=== PATIENT | female | born 1935 | race Caucasian/White ===

== ENCOUNTER → 2017-02-12 | Outpatient (CLI) | payer BC ==
[~2017-02-12] MED LIST: AMLO-110 PO; CALC600T9 PO; LEVOXYL PO; OMEG5CAP PO; TRAM-10 PO; TRAV0.00 OPB
--- NOTE | 2017-02-12 13:33 | MAMMOGRAPHY REPORT ---
BILATERAL DIGITAL SCREENING MAMMOGRAM WITH CAD: 02/12/2017 CLINICAL HISTORY: Routine screening. Patient has no complaints. TECHNIQUE: Current study was also evaluated with a Computer Aided Detection (CAD) system. Bilatera l CC and MLO views were obtained. COMPARISON: Comparison is made to exams dated: 02/10/2016 mammogram, 02/07/2015 mammogram, 02/05/2014 mammogram, 01/31/2013 mammogram, 01/25/2012 mammogram, and 01/20/2011 mammogram - [facility] enter. BREAST COMPOSITION: There are scattered areas of fibroglandular density in both breasts. FINDINGS: No suspicious masses, calcifications, or areas of architectural distortion are noted in e ither breast. There has been no significant interval change compared to prior exams. Scattered bila teral benign-appearing calcifications are not significantly changed. Nodular asymmetry seen within the right medial breast on the cc view is stable compared to multiple prior exams. Right upper oute r quadrant asymmetry is also stable. IMPRESSION: ACR BI-RADS CATEGORY 2: BENIGN There is no mammographic evidence of malignancy. A 1 year screening mammogram is recommended. The p atient will receive written notification of the results. Approximately 10% of breast cancers are not detected with mammography. A negative mammographic repor t should not delay biopsy if a clinically suggestive mass is present. Pastora Trinh M.D. ah/:02/12/2017 10:43:38 Inspector Repairer [place]: Shadia CAMPOS)(Enriqueta), [facility] letter sent: Normal 1/2 BI-RADS Code: ACR BI-RADS Category 2: Benign
== END | disposition home or self-care (01) ==
LOC: C.MAMM 10:14
PROVIDERS: ATTEND Obstetrics & Gynecology
DX: Z12.31 Encounter for screening mammogram for malignant neoplasm of breast (principal)

== ENCOUNTER → 2017-03-29 | Outpatient (CLI) | payer BC | END | disposition home or self-care (01) | LOC: C.PAPS 16:11 | PROVIDERS: ATTEND Obstetrics & Gynecology | DX: Z01.419 Encounter for gynecological examination (general) (routine) without abnormal findings (principal) ==

== ENCOUNTER 2017-04-28 09:21 | Emergency (ER) | payer BC ==
[~2017-04-28] VITALS: Ht 162.6 cm; Wt 72.4 kg
[~2017-04-28 09:21] MED LIST changes: -TRAM-10 PO
[2017-04-28 09:25] VITALS: TEMP 36.6; Ht 162.6 cm; Wt 72.4 kg
--- NOTE | 2017-04-28 10:29 | DIAGNOSTIC IMAGING REPORT ---
CT SCAN OF THE BRAIN WITHOUT IV CONTRAST CLINICAL HISTORY: 82-year-old female with fall, closed injury. COMPARISON STUDY: None. TECHNIQUE: Unenhanced axial CT scan of the brain is performed from the vertex to the skull base. Automated dose control exposure was utilized. CT DOSE: 729.78 mGycm FINDINGS: Infiltration of the superficial soft tissue of the right forehead indicative of contusion. No subjacent injury. Age-related volume loss of the brain parenchyma. No evidence of mass effect or acute territorial ischemia. No intracranial hemorrhage. No extra-axial fluid collection. Normal appearance of the intracranial vasculature. Calvarium intact. Paranasal sinuses and mastoid air cells clear. IMPRESSION: Right forehead contusion without evidence of intracranial injury or fracture. Electronically signed by: Ramón Quesada 04/28/2017 10:28 AM Dictated Date/Time: 04/28/2017 10:21 AM
--- NOTE | 2017-04-28 10:40 | DIAGNOSTIC IMAGING REPORT ---
CT FACIAL BONES-MXILLOFAC WITHOUT CT DOSE: 626.97 mGycm CLINICAL HISTORY: Facial pain status post trauma. He knows. COMPARISON STUDY: No previous studies for comparison. TECHNIQUE: Helical images were acquired in the transverse plane. The study was reviewed and analyzed on the independent 3-D workstation. The pterygoid plates appear intact. The zygomatic arches appear intact. The globes appear intact. There is no evidence of orbital emphysema. The orbital rojas and floor appear intact. The mandibular condyles appear intact. There is a nondisplaced right-sided nasal bone fracture. There is nasal septal deviation to the left. As a left-sided nasal septal spur. There is frontal scalp edema. IMPRESSION: 1. Nasal bone fracture 2. Frontal scalp edema Electronically signed by: Maikol Read M.D. 04/28/2017 10:39 AM Dictated Date/Time: 04/28/2017 10:35 AM
[2017-04-28] MEDS ORDERED: TRAM-10 PO (11:03)
--- NOTE | 2017-04-28 11:21 | EMERGENCY ROOM VISIT NOTE ---
History Report prepared by Eboniibelly: Micheal Miller Under the Supervision of: Dr. Jess Alfonso M.D. First contact with patient: 09:24 Chief Complaint: NASAL PAIN/INJURY Stated Complaint: FALL History of Present Illness The patient is a 82 year old female who presents to the Emergency Room with complaints of constant facial pain s/p fall occurring just prior to arrival. She states that she was volunteering at [employer], when she tripped and fell onto her face. She states "I fell slowly and just bumped my head". The patient states that she primarily hit her forehead and nose. She states that her nose was bleeding a small amount, but that the bleeding has since stopped. She denies any neck pain, or abdominal pain. The patient is not on any blood thinners. She denies any loss of consciousness. Source of History: patient Onset: Just prior to arrival Position: head (forehead), nose Timing: constant Associated Symptoms: No LOC, No neck pain, No abdominal pain Review of Systems See HPI for pertinent positives & negatives. A total of 10 systems reviewed and were otherwise negative. Past Medical & Surgical Medical Problems: (1) Arthritis Family History No pertinent family history stated. Social History Smoking Status: Never Smoker Marital Status: Occupation Status: retired Current/Historical Medications Scheduled Amlodipine (Norvasc), 5 MG PO QAM Calcium Carbonate-Vitamin D (Calcium + D), 1 TAB PO QAM [place]-3 Fatty Acids (Fish Oil 1200 mg), 1 CAP PO QAM Travoprost (Travatan Z), 1 DROPS OPB HS [Levoxyl], 100 MCG PO QAM Scheduled PRN Tramadol (Ultram), 1 TABS PO Q6 PRN for Pain Allergies Coded Allergies: Latex1 -Allergic Contact Dermititis (Verified Allergy, Unknown, RED/ IRRITATION, 04/28/17) Statins (Verified Allergy, Unknown, MUSCLE ACHES, 04/28/17) Sulfa Antibiotics (Verified Allergy, Unknown, HIVES, 04/28/17) Physical Exam Vital Signs Date Time Temp Pulse Resp B/P (MAP) Pulse Ox O2 Delivery O2 Flow Rate FiO2 04/28/17 11:30 83 22 168/80 95 04/28/17 09:25 36.6 87 22 183/81 95 Room Air Physical Exam Vital signs reviewed. General: Well-appearing female, in no significant distress. HEENT: No scleral icterus, PERRLA, neck supple. Mild swelling over the nasal bridge with tenderness. Mild forehead contusion. EOMI. Cardiovascular: Regular rate and rhythm, no extra sounds. Pulmonary: Clear to auscultation bilaterally, normal work of breathing. Abdomen: Soft, nontender, nondistended, positive bowel sounds. Musculoskeletal: Atraumatic, no peripheral edema. Neurologic: Patient awake alert and oriented x 3, full strength in all 4 extremities. Cranial nerves 2 through 12 grossly intact. Ambulates without difficulty. Skin: Warm, dry, no rash Medical Decision & Procedures ER Provider Diagnostic Interpretation: CT results as stated below per my review and radiologist interpretation: CT FACIAL BONES-MXILLOFAC WITHOUT The pterygoid plates appear intact. The zygomatic arches appear intact. The globes appear intact. There is no evidence of orbital emphysema. The orbital rojas and floor appear intact. The mandibular condyles appear intact. There is a nondisplaced right-sided nasal bone fracture. There is nasal septal deviation to the left. As a left-sided nasal septal spur. There is frontal scalp edema. IMPRESSION: 1. Nasal bone fracture 2. Frontal scalp edema Electronically signed by: Maikol Read M.D. CT SCAN OF THE BRAIN WITHOUT IV CONTRAST FINDINGS: Infiltration of the superficial soft tissue of the right forehead indicative of contusion. No subjacent injury. Age-related volume loss of the brain parenchyma. No evidence of mass effect or acute territorial ischemia. No intracranial hemorrhage. No extra-axial fluid collection. Normal appearance of the intracranial vasculature. Calvarium intact. Paranasal sinuses and mastoid air cells clear. IMPRESSION: Right forehead contusion without evidence of intracranial injury or fracture. Electronically signed by: Ramón Quesada ED Course 0943: Past medical records reviewed. The patient was evaluated in room B7. A complete history and physical examination was performed. Medical Decision Differential diagnosis: Etiologies such as fracture, dislocation, intra-abdominal, pneumothorax, intrathoracic , intracranial, neurologic, as well as other traumatic pathologies were entertained. Blood Pressure Screening: Patient was found to have a slightly elevated blood pressure due to circumstances. I do not believe that the patient requires hypertension monitoring. Medication Reconciliation: I attest that I have personally reviewed the patient' s current medication list. This patient was evaluated and appeared to be in no significant distress. CT scan of the head and facial bones was performed and reveals no evidence of acute intracranial abnormality. Nasal bone fractures visualized. Patient has a chronic septal deviation. Patient has mild swelling on physical exam. She was advised to ice intermittently and use Tylenol for pain. She was given a prescription for Ultram to be used as needed for more severe pain. Patient will follow-up with her PCP this week and return to the ER for worsening of symptoms or any medical concerns. Impression Primary Impression: Closed head injury Additional Impression: Nasal bone fracture Scribe Attestation The scribe's documentation has been prepared under my direction and personally reviewed by me in its entirety. I confirm that the note above accurately reflects all work, treatment, procedures, and medical decision making performed by me. Departure Information Dispostion Home / Self-Care Prescriptions Tramadol (Ultram) 50 Mg Tab 1 TABS PO Q6 Y for Pain, #30 TAB Prov: Jess Alfonso M.D. 04/28/17 Referrals Ramón Wallace M.D. (PCP) Forms HOME CARE DOCUMENTATION FORM, IMPORTANT VISIT INFORMATION, WORK / SCHOOL INSTRUCTIONS Patient Instructions My [facility] Additional Instructions Diagnosis: Nasal bone fracture, closed head injury Tylenol 650 mg every 6 hours as needed for pain. Ultram 50 mg every 6 hours as needed for pain. Ice intermittently for the next 24 hours. Follow-up with your physician this week for reevaluation. You may need ENT referral for evaluation. Return to the ER for worsening of symptoms or any medical concerns. Problem Qualifiers Primary Impression: Closed head injury Encounter type: initial encounter Qualified Codes: S09.90XA - Unspecified injury of head, initial encounter Additional Impression: Nasal bone fracture Encounter type: initial encounter Fracture type: closed Qualified Codes: S02.2XXA - Fracture of nasal bones, initial encounter for closed fracture
[2017-04-28 11:30] VITALS: BP 168/80; PULSE 83; O2SAT 95
== END 2017-04-28 11:32 | disposition home or self-care (01) ==
LOC: EDBD 09:21 → C.EDB 09:22
DX: S02.2XXA Fracture of nasal bones, initial encounter for closed fracture (principal); S00.83XA Contusion of other part of head, initial encounter; W18.09XA Striking against other object with subsequent fall, initial encounter; M19.90 Unspecified osteoarthritis, unspecified site; Z79.899 Other long term (current) drug therapy; Y99.2 Volunteer activity

== ENCOUNTER → 2017-05-17 | Outpatient (CLI) | payer BC ==
[~2017-05-17] MED LIST changes: +TRAM-10 PO
[2017-05-17 11:31] LABS: ALT/SGPT 21 U/L (12-78); AST/SGOT 12 U/L (15-37); BLOOD UREA NITROGEN 9 mg/dl (7-18); BUN/CREATININE RATIO 17.3 (10-20); CALCIUM 9.1 mg/dl (8.5-10.1); CARBON DIOXIDE 32 mmol/L (21-32); CHLORIDE 108 mmol/L (98-107); CREATININE 0.54 mg/dl (0.60-1.20); GLUCOSE 85 mg/dl (70-99); POTASSIUM 4.2 mmol/L (3.5-5.1); SODIUM 143 mmol/L (136-145)
[2017-05-17 11:41] LABS: ALB/GLOB RATIO 1.1 (0.9-2); ALKALINE PHOSPHATASE 73 U/L (45-117); CHOLESTEROL 255 mg/dl (0-200); CHOLESTEROL/HDL RATIO 4.5; HDL CHOLESTEROL 57 mg/dl; LDL CHOLESTEROL CALCULATED 178 mg/dl; TRIGLYCERIDES 101 mg/dl (0-150); VERY LOW DENSITY LIPOPROT CALC 20 mg/dl
== END | disposition home or self-care (01) ==
LOC: C.LABBC 07:19
PROVIDERS: ATTEND Internal Medicine
DX: E78.5 Hyperlipidemia, unspecified (principal); M81.0 Age-related osteoporosis without current pathological fracture

== ENCOUNTER → 2017-07-08 | Outpatient (CLI) | payer BC | END | disposition home or self-care (01) | LOC: C.MAMM 14:13 | PROVIDERS: ATTEND Internal Medicine | DX: M85.851 Other specified disorders of bone density and structure, right thigh (principal); M85.852 Other specified disorders of bone density and structure, left thigh; M85.832 Other specified disorders of bone density and structure, left forearm ==

== ENCOUNTER → 2017-11-04 | Outpatient (CLI) | payer BC ==
[~2017-11-04] MED LIST changes: -TRAM-10 PO
[2017-11-04 11:29] LABS: CALCIUM 9.1 mg/dl (8.5-10.1); CREATININE 0.57 mg/dl (0.60-1.20)
== END | disposition home or self-care (01) ==
LOC: C.LABBC 07:56
PROVIDERS: ATTEND Internal Medicine Rheumatology
DX: Z00.00 Encounter for general adult medical examination without abnormal findings (principal); M81.0 Age-related osteoporosis without current pathological fracture; E55.9 Vitamin D deficiency, unspecified; M89.8X1 Other specified disorders of bone, shoulder; E61.8 Deficiency of other specified nutrient elements

== ENCOUNTER → 2018-02-16 | Outpatient (CLI) | payer BC ==
--- NOTE | 2018-02-16 15:31 | MAMMOGRAPHY REPORT ---
BILATERAL DIGITAL SCREENING MAMMOGRAM TOMOSYNTHESIS WITH CAD: 02/16/2018 CLINICAL HISTORY: Routine screening. Patient has no complaints. TECHNIQUE: Breast tomosynthesis in addition to standard 2D mammography was performed. Current study was also evaluated with a Computer Aided Detection (CAD) system. COMPARISON: Comparison is made to exams dated: 02/12/2017 mammogram, 02/10/2016 mammogram, 02/07/2015 m ammogram, 02/05/2014 mammogram, 01/31/2013 mammogram, and 01/25/2012 mammogram - [facility]. BREAST COMPOSITION: There are scattered areas of fibroglandular density in both breasts. FINDINGS: No suspicious masses, calcifications, or areas of architectural distortion are noted in ei ther breast. There has been no significant interval change compared to prior exams. Bilateral asymme tries and scattered bilateral benign-appearing calcifications are not significantly changed. IMPRESSION: ACR BI-RADS CATEGORY 2: BENIGN There is no mammographic evidence of malignancy. A 1 year screening mammogram is recommended. The pa tient will receive written notification of the results. Approximately 10% of breast cancers are not detected with mammography. A negative mammographic report should not delay biopsy if a clinically suggestive mass is present. Pastora Trinh M.D. ah/:02/16/2018 12:35:44 Supervisor Shuttle Preparation: Cassidy RIOS(Judah)(M), [facility] letter sent: Normal 1/2 BI-RADS Code: ACR BI-RADS Category 2: Benign
== END | disposition home or self-care (01) ==
LOC: C.MAMM 09:46
PROVIDERS: ATTEND Obstetrics & Gynecology
DX: Z12.31 Encounter for screening mammogram for malignant neoplasm of breast (principal)

== ENCOUNTER → 2018-05-18 | Outpatient (CLI) | payer BC ==
[~2018-05-18] MED LIST changes: -AMLO-110 PO; +AMLO5TAB3 PO
[2018-05-18 13:05] LABS: BASO % 0.6 %; BASO ABS # 0.05 K/uL (0-0.2); EOS % 2.3 %; EOS ABS # 0.19 K/uL (0-0.5); HEMOGLOBIN 14.1 g/dL (12.0-16.0); IG# 0.01 K/uL (0.00-0.02); LYMPH % 29.6 %; LYMPH ABS # 2.45 K/uL (1.2-3.4); MEAN CELL VOLUME 91.3 fL (80-100); MEAN CORPUSCULAR HEMOGLOBIN 29.9 pg (25-34); MEAN CORPUSCULAR HGB CONC 32.8 g/dl (32-36); MEAN PLATELET VOLUME 12.2 fL (7.4-10.4); MONO % 12.1 %; NEUT % 55.3 %; NEUT ABS # 4.58 K/uL (1.4-6.5); PLATELET COUNT 285 K/uL (130-400); RED CELL DISTRIBUTION WIDTH CV 14.1 % (11.5-14.5); RED CELL DISTRIBUTION WIDTH SD 47.2 fL (36.4-46.3); WHITE BLOOD COUNT 8.28 K/uL (4.8-10.8)
[2018-05-18 13:29] LABS: HEMOGLOBIN A1C 5.7 % (4.5-5.6)
[2018-05-18 13:39] LABS: ALBUMIN 3.5 gm/dl (3.4-5.0); ALKALINE PHOSPHATASE 69 U/L (45-117); ALT/SGPT 20 U/L (12-78); AST/SGOT 16 U/L (15-37); BLOOD UREA NITROGEN 13 mg/dl (7-18); CALCIUM 8.3 mg/dl (8.5-10.1); CARBON DIOXIDE 27 mmol/L (21-32); CHOLESTEROL 250 mg/dl (0-200); CREATININE 0.59 mg/dl (0.60-1.20); GLUCOSE 88 mg/dl (70-99); LDL CHOLESTEROL CALCULATED 176 mg/dl; POTASSIUM 4.1 mmol/L (3.5-5.1); SODIUM 140 mmol/L (136-145); TOTAL PROTEIN 6.7 gm/dl (6.4-8.2)
== END | disposition home or self-care (01) ==
LOC: C.LABBC 07:12
PROVIDERS: ATTEND Internal Medicine
DX: M81.0 Age-related osteoporosis without current pathological fracture (principal); I10 Essential (primary) hypertension; M54.5 Low back pain; E78.5 Hyperlipidemia, unspecified; G62.9 Polyneuropathy, unspecified; R20.2 Paresthesia of skin

== ENCOUNTER 2022-07-14 12:51 | Observation (INO) ==
[2022-07-14 14:18] LABS: Basophils # (auto) 0.11 K/uL (0-0.2); Basophils % (auto) 1.1 %; Eosinophils # (auto) 0.17 K/uL (0-0.50); Eosinophils % (auto) 1.6 %; Hematocrit (blood only) 44.7 % (34.1-44.9); Hemoglobin 14.8 g/dl (12.0-16.0); Immature Granulocytes # (auto) 0.03 K/uL (0.00-0.02); Immature Granulocytes % (auto) 0.3 %; Lymphocytes # (auto) 2.03 K/uL (1.2-3.4); Lymphocytes % (auto) 19.4 %; Mean Corpuscular Hemoglobin 29.7 pg (25.0-34.0); Mean Corpuscular Hgb Conc 33.1 g/dL (32.0-36.0); Mean Corpuscular Volume 89.6 fL (80.0-100.0); Mean Platelet Volume 11.3 fL (9.4-12.3); Monocytes # (auto) 0.96 K/uL (0.24-0.82); Monocytes % (auto) 9.2 %; Neutrophils # (auto) 7.16 K/uL (1.4-6.5); Neutrophils % (auto) 68.4 %; Platelet Count 357 K/uL (130-400); RDW Coefficient of Variation 14.5 % (11.5-14.5); RDW Standard Deviation 46.9 fL (36.4-46.3); Red Blood Count 4.99 M/uL (3.93-5.22); White Blood Count 10.46 K/ul (4.8-10.8)
[2022-07-14 14:24] LABS: Prothrombin Time 10.2 Seconds (9.0-12.0)
--- NOTE | 2022-07-14 14:26 | XRay Report ---
XR chest 1V portable CLINICAL HISTORY: Stroke Like Symptoms TECHNIQUE: Single frontal radiograph of the chest was obtained. Comparison: Comparison is made to rib series 05/10/2006 FINDINGS: No lines and tubes are seen. Calcified aortic knob is seen. Cardiomegaly is seen. The lungs are clear . No evidence of pleural effusion or pneumothorax. IMPRESSION: No acute chest disease. Cardiomegaly is noted. ACT 112: Negative or not required by law. Electronically signed by: Mike Morse M.D. 07/14/2022 2:25 PM
[2022-07-14 14:36] LABS: Albumin Globulin Ratio 1.6 (0.9-2); Albumin Level 4.4 gm/dl (3.4-5.0); BUN Creatinine Ratio 22.7 (10-20); Bilirubin,Total 0.7 mg/dl (0.2-1.0); Calcium 9.6 mg/dl (8.5-10.1); Creatinine Clr Calc Pharmacy 56.2 ml/min; Est GFR (African American) 92.1 ml/min; Est GFR (Non-African American) 79.4 ml/min; Globulin 2.8 gm/dl (2.5-4.0); Magnesium 2.5 mg/dl (1.7-2.4); Potassium 3.8 mmol/L (3.5-5.1); Total Protein 7.2 gm/dl (6.0-8.3)
--- NOTE | 2022-07-14 14:40 | Emergency Department Note ---
History of Present Illness General Chief complaint: Dizziness Stated complaint: WEAKNESS LEFT HAND-LIGHTHEADED X 1DAY Time Seen by Provider: 07/14/22 13:33 Source: patient Mode of arrival: ambulatory Limitations: no limitations History of Present Illness Provider complaint: Left hand weakness, lightheadedness Onset (ago): day(s) 1 Location: upper extremity This is an 87-year-old female who presents emergency department due to concern for intermittent lightheadedness and left hand weakness. Patient states weakness first began yesterday and lasted approximately 15 minutes. She states her left hand and arm felt "disconnected from her body" and would not do what she was trying to do appropriately. She states it felt heavy and weak. Patient is right-hand dominant but states she frequently uses her left hands for many tasks. Patient states she could not type when sitting down at her keyboard as she normally could. Patient denies any accompanying pain to the arm. No recent trauma or change in activity. No history of peripheral neuropathy in the left upper extremity. Patient denies any neck or shoulder pain. Patient states that she has had intermittent lightheadedness for several days, these episodes do not specifically tied to the weakness. She states her left upper extremity and left hand felt normal last evening and at bedtime and then again when she got up. She states she noticed the symptoms recur again today around lunchtime and they have since persisted. Home Medications Medication Instructions Recorded Confirmed Type docusate sodium 100 mg capsule 100 mg PO DAILY PRN Constipation 05/10/19 07/14/22 History (Dulcolax Stool Softener (docusate)) travoprost 0.004 % eye drops 1 drops ophthalmic (eye) QPM 05/10/19 07/14/22 History (Travatan Z) cholecalciferol (vitamin D3) 25 1,000 units PO QAM 08/22/19 07/14/22 History mcg (1,000 unit) capsule levothyroxine 100 mcg tablet 100 mcg PO QAM #90 tabs 09/22/21 07/14/22 Rx (Levoxyl) aspirin 81 mg chewable tablet 81 mg PO DAILY #30 tabs 09/29/21 07/14/22 Rx ezetimibe 10 mg tablet (Zetia) 10 mg PO DAILY #30 tabs 02/09/22 07/14/22 Rx fluticasone propionate 50 1 spray intranasal BID #15.8 mL 04/29/22 07/14/22 Rx mcg/actuation nasal spray,suspension (Flonase Allergy Relief) mupirocin 2 % topical ointment 1 applic topical BID #22 grams 04/29/22 07/14/22 Rx amlodipine 5 mg tablet 5 mg PO QAM #90 tabs 07/03/22 07/14/22 Rx calcium carbonate 600 mg-vitamin 1 tab PO DAILY 07/14/22 07/14/22 History D3 5 mcg (200 unit) tablet omega 9-mlv-gah-fish oil 1,000 mg 1 cap PO DAILY 07/14/22 07/14/22 History (120 mg-180 mg) capsule (Fish Oil) Allergies Allergy/AdvReac Type Severity Reaction Status Date / Time bee venom protein (honey bee) Allergy Severe swelling Verified 07/14/22 16:05 of lips/tongue/throat adhesive Allergy Intermediate rash Verified 07/14/22 16:05 latex Allergy Unknown RED/IRRITAT Verified 07/14/22 16:05 ION Sulfa (Sulfonamide Allergy Unknown HIVES Verified 07/14/22 16:05 Antibiotics) Gbhvehr-CLK-PjO Reductase AdvReac Unknown MUSCLE Verified 07/14/22 16:05 Inhibitor ACHES [Obumyph-Ara-Dej Reductase Inhibitor] Past Med/Surg History Medical History Arthritis of lumbar spine Arthritis, multiple joint involvement Broken wrist Lt History of hyperlipidemia HTN (hypertension) Hyperlipidemia Hypothyroidism Osteoarthritis Osteoporosis PAD (peripheral artery disease) Paresthesias feet Polyneuropathy Sensorineural hearing loss of combined types, bilateral Solitary thyroid nodule Vitamin D deficiency Surgical History History of basal cell carcinoma face/back with removal History of cataract surgery History of colonoscopy History of tooth extraction wisdom teeth S/P colonoscopy S/P tonsillectomy and adenoidectomy Family History Aunt , Age 70 Breast cancer Colorectal cancer paternal Sister Colorectal cancer Diabetes Hyperlipidemia Environmental allergies Asthma Uncle Colorectal cancer paternal Grandmother (Paternal) Colorectal cancer Father , AGE 62 Myocardial infarction FIRST [place] AGE 49 Cardiovascular disease Heart disease Mother , Age 92 Bladder cancer Grandfather (Paternal) Colorectal cancer Other No family history of adverse response to anesthesia No family history of bleeding disorder Denies family history of Ovarian cancer Prostate cancer Kidney disease Lung cancer Hypertension Stroke Social History Smoking Status: Never smoker Second Hand Exposure: No; Do You Dip or Chew Tobacco: No; Tobacco Cessation Education Requested by Patient: No Hx Alcohol Use: No Hx Substance Use: No Preferred Language: Tajik Communication Ability: Effective Visual Impairment: Limited Hearing Ability: Hard of Hearing 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 Beliefs That Will Affect Care: None marital status: / Current Living Situation: Alone current occupational status: retired 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 How many Children do You have: 1 Other Information That Helps Us Care for You: No Feels Safe at Home: Yes Safety Concerns: Feels Safe At This Time Childhood Exposure to Second-Hand Smoke: Yes caffeine: Yes (coffee) Dental Care, Regularly: Yes Physical Activity Frequency: 3-4 Times per Week Seatbelt Use: always Sunscreen Use: Yes Assistive Devices: Cane Assistive Devices Comment: cane prn Review of Systems A total of 10 systems reviewed and were otherwise negative All systems reviewed & are unremarkable except as noted in HPI & below Physical Exam Vital Signs Vital Signs - 24 hr 07/14/22 13:09 07/14/22 14:22 Temperature 36.8 C Temperature Source Temporal Artery Scan Pulse Rate 76 Respiratory Rate 20 20 Respiratory Effort / Characteristics Non-Labored Spontaneous Respiratory Depth Normal Respiratory Pattern Regular Blood Pressure 161/73 H Blood Pressure [Right Arm] 143/68 H Blood Pressure Mean 102 Blood Pressure Mean [Right Arm] 93 Blood Pressure Position Sitting Pulse Oximetry 95 96 Oxygen Delivery Method Room Air Room Air Sepsis Recent Fever Within 48 Hours No Sepsis New/Unexplained Change in Mental Status N/A Sepsis Action Taken by Nursing No Action Required GENERAL: alert, well appearing, well nourished, no distress, non-toxic EYE EXAM: normal conjunctiva, PERRL and EOM's grossly intact OROPHARYNX: no exudate, no erythema, lips, buccal mucosa, and tongue normal and mucous membranes are moist NECK: supple, no nuchal rigidity, no adenopathy, non-tender LUNGS: Clear to auscultation. Normal chest wall mechanics, no w/r/r HEART: no murmurs, S1 normal and S2 normal ABDOMEN: abdomen soft, non-tender, normo-active bowel sounds, no masses, no rebound or guarding. BACK: Back is symmetrical on inspection and there is no deformity, no midline tenderness, no CVA tenderness. SKIN: no rashes and no bruising UPPER EXTREMITIES: upper extremities are grossly normal. FROM, nml pulses b/l. Bilaterally. No limb ataxia. LOWER EXTREMITIES: No pitting edema. FROM, nml pulses b/l. NEURO EXAM: Normal sensorium, cranial nerves II-XII grossly intact, normal speech, no gross weakness of arms, no gross weakness of legs. No pronator drift. Finger to nose intact. Normal [id number]. Gross sensation intact. No ataxia. Course Administered Medications Amlodipine Besylate (Amlodipine Besylate 5 Mg Tab) 5 mg PO QAM [facility] Stop: 08/13/22 21:21 Last Admin: 07/15/22 08:23 Dose: 5 mg Documented By: Admin: 07/14/22 21:54 Dose: Not Given Documented By: ЕЛЕНА Aspirin (Aspirin 81 Mg Ectab) 81 mg PO DAILY ROLY Stop: 08/14/22 08:59 Last Admin: 07/15/22 10:07 Dose: 81 mg Documented By: ILIA Clopidogrel Bisulfate (Clopidogrel Bisulfate 75 Mg Tab) 75 mg PO QAM [facility]OL[facility] Stop: 08/14/22 08:59 Last Admin: 07/15/22 08:22 Dose: 75 mg Documented By: ILIA Ezetimibe (Ezetimibe 10 Mg Tablet) 10 mg PO DAILY ROLY Stop: 08/14/22 08:59 Last Admin: 07/15/22 08:23 Dose: 10 mg Documented By: ILIA Fish Oil (Arion-3 (Purified Fish Oil) 1 Gm Cap) 1 gm PO DAILY ROLY Stop: 08/14/22 08:59 Last Admin: 07/15/22 08:23 Dose: 1 gm Documented By: ILIA Heparin Sodium (Porcine) (Heparin Sod 5,000 Unit/0.5 Ml Vial) 5,000 units SQ Q12 [facility] Stop: 08/14/22 08:59 Last Admin: 07/15/22 08:22 Dose: 5,000 units Documented By: ILIA Levothyroxine Sodium (Levothyroxine Sodium 100 Mcg Tablet) 100 mcg PO DAILYBB [facility]OLY Stop: 08/14/22 06:29 Last Admin: 07/15/22 06:17 Dose: 100 mcg Documented By: ЕЛЕАН Travoprost (Travoprost Z 0.004% Oph Soln 2.5 Ml Btl) 1 drops OP QPM ROLY Stop: 08/13/22 21:21 Last Admin: 07/14/22 21:54 Dose: 1 drops Documented By: ЕЛЕНА Discontinued Medications Amlodipine Besylate (Amlodipine Besylate 5 Mg Tab) 5 mg PO NOW ONE Stop: 07/14/22 18:10 Last Admin: 07/14/22 19:04 Dose: 5 mg Documented By: KK Clopidogrel Bisulfate (Clopidogrel Bisulfate 300 Mg Tab) 300 mg PO NOW STA Stop: 07/15/22 16:24 Last Admin: 07/15/22 16:54 Dose: 300 mg Documented By: [id number] Ioversol (Optiray 300 500ml) 120 ml IV ONCE ONE Stop: 07/14/22 15:51 Last Admin: 07/14/22 15:50 Dose: 120 ml Documented By: SEHari Medical Decision Making Differential Diagnosis Differential Diagnosis includes but is not limited to ischemic Stroke, hemorrhagic stroke, bells palsy, mass, neoplasm, migraine headache, seizure, subarachnoid hemorrhage, TIA, and transient global amnesia. Medical Records Attestation: I reviewed the patient's medical records. Home Medications Current Medication List: was personally reviewed by me Laboratory Data Attestation: I reviewed the patient's lab results. Result diagrams: 07/15/22 07:38 07/15/22 07:38 Lab Results 07/14/22 07/14/22 07/14/22 Range/Units 14:03 14:03 14:03 WBC 10.46 (4.8-10.8) K/ul RBC 4.99 (3.93-5.22) M/uL Hgb 14.8 (12.0-16.0) g/dl Hct 44.7 (34.1-44.9) % MCV 89.6 (80.0-100.0) fL MCH 29.7 (25.0-34.0) pg MCHC 33.1 (32.0-36.0) g/dL RDW Std Deviation 46.9 H (36.4-46.3) fL RDW Coeff of Katya 14.5 (11.5-14.5) % Plt Count 357 (130-400) K/uL MPV 11.3 (9.4-12.3) fL Immature Gran % (Auto) 0.3 % Neut % (Auto) 68.4 % Lymph % (Auto) 19.4 % [place] % (Auto) 9.2 % Eos % (Auto) 1.6 % Baso % (Auto) 1.1 % Neut # (Auto) 7.16 H (1.4-6.5) K/uL Lymph # (Auto) 2.03 (1.2-3.4) K/uL [place] # (Auto) 0.96 H (0.24-0.82) K/uL Eos # (Auto) 0.17 (0-0.50) K/uL Baso # (Auto) 0.11 (0-0.2) K/uL Immature Gran # (Auto) 0.03 H (0.00-0.02) K/uL PT 10.2 (9.0-12.0) Seconds INR 1.0 (0.9-1.1) Sodium 141 (136-145) mmol/L Potassium 3.8 (3.5-5.1) mmol/L Chloride 104 (98-107) mmol/L Carbon Dioxide 31 (21-32) mmol/L Anion Gap 6 (3-11) BUN 15 (6-23) mg/dl Creatinine 0.66 (0.6-1.2) mg/dl Est Cr Clr Drug Dosing 56.2 ml/min Est GFR ( Amer) 92.1 ml/min Est GFR (Non-Af Amer) 79.4 ml/min BUN/Creatinine Ratio 22.7 H (10-20) Glucose 105 H (70-99(Fasting)) mg/dl Calcium 9.6 (8.5-10.1) mg/dl Magnesium 2.5 H (1.7-2.4) mg/dl Total Bilirubin 0.7 (0.2-1.0) mg/dl AST 15 (13-39) U/L ALT 13 (7-52) U/L Alkaline Phosphatase 81 (34-104) U/L Troponin I High Sens 5.1 (0-14) pg/ml Total Protein 7.2 (6.0-8.3) gm/dl Albumin 4.4 (3.4-5.0) gm/dl Globulin 2.8 (2.5-4.0) gm/dl Albumin/Globulin Ratio 1.6 (0.9-2) SARS-CoV-2, RNA, NAAT (NEGATIVE) 07/14/22 Range/Units 17:46 WBC (4.8-10.8) K/ul RBC (3.93-5.22) M/uL Hgb (12.0-16.0) g/dl Hct (34.1-44.9) % MCV (80.0-100.0) fL MCH (25.0-34.0) pg MCHC (32.0-36.0) g/dL RDW Std Deviation (36.4-46.3) fL RDW Coeff of Katya (11.5-14.5) % Plt Count (130-400) K/uL MPV (9.4-12.3) fL Immature Gran % (Auto) % Neut % (Auto) % Lymph % (Auto) % [place] % (Auto) % Eos % (Auto) % Baso % (Auto) % Neut # (Auto) (1.4-6.5) K/uL Lymph # (Auto) (1.2-3.4) K/uL [place] # (Auto) (0.24-0.82) K/uL Eos # (Auto) (0-0.50) K/uL Baso # (Auto) (0-0.2) K/uL Immature Gran # (Auto) (0.00-0.02) K/uL PT (9.0-12.0) Seconds INR (0.9-1.1) Sodium (136-145) mmol/L Potassium (3.5-5.1) mmol/L Chloride (98-107) mmol/L Carbon Dioxide (21-32) mmol/L Anion Gap (3-11) BUN (6-23) mg/dl Creatinine (0.6-1.2) mg/dl Est Cr Clr Drug Dosing ml/min Est GFR ( Amer) ml/min Est GFR (Non-Af Amer) ml/min BUN/Creatinine Ratio (10-20) Glucose (70-99(Fasting)) mg/dl Calcium (8.5-10.1) mg/dl Magnesium (1.7-2.4) mg/dl Total Bilirubin (0.2-1.0) mg/dl AST (13-39) U/L ALT (7-52) U/L Alkaline Phosphatase (34-104) U/L Troponin I High Sens (0-14) pg/ml Total Protein (6.0-8.3) gm/dl Albumin (3.4-5.0) gm/dl Globulin (2.5-4.0) gm/dl Albumin/Globulin Ratio (0.9-2) SARS-CoV-2, RNA, NAAT NEGATIVE (NEGATIVE) Imaging Data Radiologist's Impression: Chest X-Ray 07/14/22 13:56 XR chest 1V portable CLINICAL HISTORY: Stroke Like Symptoms TECHNIQUE: Single frontal radiograph of the chest was obtained. Comparison: Comparison is made to rib series 05/10/2006 FINDINGS: No lines and tubes are seen. Calcified aortic knob is seen. Cardiomegaly is seen. The lungs are clear. No evidence of pleural effusion or pneumothorax. IMPRESSION: No acute chest disease. Cardiomegaly is noted. ACT 112: Negative or not required by law. Electronically signed by: Mike Morse M.D. 07/14/2022 2:[address] ANGIOGRAM OF THE BRAIN COMBO; CT ANGIOGRAM OF THE NECK CLINICAL HISTORY: Strokelike symptoms. COMPARISON STUDY: CT of the brain dated 04/28/2017. TECHNIQUE: Unenhanced axial CT scan of the brain is performed. Subsequently, following the IV administration of 120 of Optiray 300, CT angiogram of the head and neck was performed from the aortic arch to the vertex. Images are reviewed in the axial, sagittal, and coronal planes. 3-D MIPS images are created and assessed. IV contrast was administered without complication. All measurements were calculated based on NASCET criteria. A dose lowering technique was utilized adhering to the principles of ALARA. CT DOSE: 1140.47 mGy.cm FINDINGS: Brain parenchyma: There is age-related involutional change noting minimal microangiopathic disease. There is no hemorrhage, mass effect, or evidence of acute territorial ischemia by CT criteria. There is no evidence of enhancing mass lesion on the angiogram phase images. The ventricles, sulci, and cisterns are prominent secondary to visual change. Fermin-white matter differentiation is preserved. No extra-axial fluid collection is seen. Thoracic aorta: There is atherosclerotic calcification of the thoracic aorta. Visualized portions of the thoracic aorta are normal in caliber. The aortic arch demonstrates standard 3-vessel anatomy. Right carotid arterial system: The right common carotid artery is widely patent. There is advanced atherosclerotic plaque in the carotid bulb. This causes high- grade stenosis (greater than 75%) of the proximal internal carotid artery approximately 1 cm above the bifurcation. This is best seen on axial image #263. The mid to distal portions of the internal carotid artery are widely patent. The external carotid artery is clear. Left carotid arterial system: The left common carotid artery is widely patent, as are the left internal and external carotid arteries. Calcified plaque is noted in the carotid bulb. Vertebral arteries: The vertebral arteries are widely patent bilaterally noting mild left-sided dominance. Subclavian arteries: Widely patent bilaterally. Intracranial vasculature: There is atherosclerotic calcification of the cavernous carotid arteries. The internal carotid arteries are patent at the skull base, as are the anterior and middle cerebral arteries bilaterally. The vertebrobasilar system and posterior cerebral arteries are widely patent. The left vertebral artery is slightly dominant. 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 No additional aneurysms identified. There is a high grade stenosis Or focal vessel cut off seen throughout the intracranial circulation. Jugular veins: Patent bilaterally. Dural sinuses: Patent. Lung apices: Partially visualized upper lobe lung parenchyma appears clear. Soft tissues: The visualized pharyngeal soft tissues are normal in appearance noting angiographic phase technique. The oropharyngeal airway appears widely patent. The thyroid gland is atrophic and heterogeneous. The salivary are normal in appearance. No cervical lymphadenopathy is seen. Skeletal structures: The skeletal structures are osteopenic. The calvarium appears intact. The cervical spine is maintained noting mild multilevel spondylosis. No lytic or blastic lesion is identified. Orbits: The bony orbits are intact. Orbital contents are normal as visualized noting bilateral ocular lens implants. Sinuses and mastoids: The paranasal sinuses are clear. The mastoid air cells are well pneumatized. IMPRESSION: 1. There is no hemorrhage, mass effect, or evidence of acute territorial ischemia by CT criteria. 2. 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 3. Otherwise unremarkable CT angiogram of the brain. 4. There is high-grade stenosis (greater than 75%) of the proximal right internal carotid artery. 5. Otherwise unremarkable CT angiogram of the neck. ACT 112: Negative or not required by law. Electronically signed by: Albaro Ramesh M.D. 07/14/2022 4:14 PM ECG Data Attestation: I personally reviewed and interpreted this ECG as follows: Indication: + weakness Rate (beats per minute): 64 Rhythm: + normal sinus ECG Intervals/blocks: + Normal QRS and + Normal QT ECG [place]: + Normal ECG ST segments: + Nonspecific ST abnormalities MDM Narrative An order was placed for continuous cardiac monitoring. The monitor shows a rate of 78__ with _normal sinus__ rhythm. This is an 87-year-old female presents due to concern for episode of left arm/hand weakness. Patient with brief episode yesterday lasting only 15 minutes, and recurrent episode today persisting causing her to present to the emergency room. Patient with mild hypertension noted however otherwise hemodynamically stable. Labs drawn and sent and patient sent for CT/CTA. Patient's labs and imaging reassuring. Incidental findings noted however given patient's advanced age and location I do not suspect they are contributing to her symptoms today. Due to history of high blood pressure and high cholesterol, discussed with her possible need for additional stroke evaluation and she was in agreement. Case discussed with hospitalist for additional evaluation and management. Take low-dose aspirin daily. Impression & Plan Weakness of left hand, HTN (hypertension) Discharge Plan Visit Data Chief Complaint: Dizziness Stated Complaint: WEAKNESS LEFT HAND-LIGHTHEADED X 1DAY ED Provider: Helen Arndt Discharge Problem: Weakness of left hand, HTN (hypertension) Patient Disposition: Admitted As Inpatient Discharge Instructions Interventions: ED Discharge Assessment Last Done: 07/14/22 20:58
[2022-07-14 15:20] LABS: Troponin I High Sensitivity 5.1 pg/ml (0-14)
[2022-07-14] MEDS ORDERED: OPTIRAY 300 500mL IV ONE (15:50)
--- NOTE | 2022-07-14 16:16 | CT Scan Report ---
CT ANGIOGRAM OF THE BRAIN COMBO; CT ANGIOGRAM OF THE NECK CLINICAL HISTORY: Strokelike symptoms. COMPARISON STUDY: CT of the brain dated 04/28/2017. TECHNIQUE: Unenhanced axial CT scan of the brain is performed. Subsequently, following the IV adminis tration of 120 of Optiray 300, CT angiogram of the head and neck was performed from the aortic arch t o the vertex. Images are reviewed in the axial, sagittal, and coronal planes. 3-D MIPS images are cre ated and assessed. IV contrast was administered without complication. All measurements were calculate d based on NASCET criteria. A dose lowering technique was utilized adhering to the principles of ALA RA. CT DOSE: 1140.47 mGy.cm FINDINGS: Brain parenchyma: There is age-related involutional change noting minimal microangiopathic disease. T here is no hemorrhage, mass effect, or evidence of acute territorial ischemia by CT criteria. There i s no evidence of enhancing mass lesion on the angiogram phase images. The ventricles, sulci, and cist erns are prominent secondary to visual change. Fermin-white matter differentiation is preserved. No ext ra-axial fluid collection is seen. Thoracic aorta: There is atherosclerotic calcification of the thoracic aorta. Visualized portions of the thoracic aorta are normal in caliber. The aortic arch demonstrates standard 3-vessel anatomy. Right carotid arterial system: The right common carotid artery is widely patent. There is advanced at herosclerotic plaque in the carotid bulb. This causes high-grade stenosis (greater than 75%) of the p roximal internal carotid artery approximately 1 cm above the bifurcation. This is best seen on axial image #263. The mid to distal portions of the internal carotid artery are widely patent. The external carotid artery is clear. Left carotid arterial system: The left common carotid artery is widely patent, as are the left customer experience intern al and external carotid arteries. Calcified plaque is noted in the carotid bulb. Vertebral arteries: The vertebral arteries are widely patent bilaterally noting mild left-sided domin ance. Subclavian arteries: Widely patent bilaterally. Intracranial vasculature: There is atherosclerotic calcification of the cavernous carotid arteries. T he internal carotid arteries are patent at the skull base, as are the anterior and middle cerebral ar teries bilaterally. The vertebrobasilar system and posterior cerebral arteries are widely patent. The left vertebral artery is slightly dominant. There is a 3 mm aneurysm of the supraclinoid left customer experience intern al carotid artery, best seen on axial image #98. No additional aneurysms identified. There is a high grade stenosis Or focal vessel cut off seen throughout the intracranial circulation. Jugular veins: Patent bilaterally. Dural sinuses: Patent. Lung apices: Partially visualized upper lobe lung parenchyma appears clear. Soft tissues: The visualized pharyngeal soft tissues are normal in appearance noting angiographic pha se technique. The oropharyngeal airway appears widely patent. The thyroid gland is atrophic and heter ogeneous. The salivary are normal in appearance. No cervical lymphadenopathy is seen. Skeletal structures: The skeletal structures are osteopenic. The calvarium appears intact. The cervic al spine is maintained noting mild multilevel spondylosis. No lytic or blastic lesion is identified. Orbits: The bony orbits are intact. Orbital contents are normal as visualized noting bilateral ocular lens implants. Sinuses and mastoids: The paranasal sinuses are clear. The mastoid air cells are well pneumatized. IMPRESSION: 1. There is no hemorrhage, mass effect, or evidence of acute territorial ischemia by CT criteria. 2. 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 3. Otherwise unremarkable CT angiogram of the brain. 4. There is high-grade stenosis (greater than 75%) of the proximal right internal carotid artery. 5. Otherwise unremarkable CT angiogram of the neck. ACT 112: Negative or not required by law. Electronically signed by: Albaro Ramesh M.D. 07/14/2022 4:14 PM
--- NOTE | 2022-07-14 17:53 | History & Physical Report ---
Date of Service July 14, 2022 Assessment & Plan (1) Left hand weakness: Plan: Vilma is an 87-year-old female who presents with 2 episodes of left hand weakness concerning for TIA, symptoms improved by time of hospitalist evaluation. tPA not indicated based on improving symptoms. Left hand weakness, TIA/CVA eval - CTA-Head/Neck: 1. There is no hemorrhage, mass effect, or evidence of acute territorial ischemia by CT criteria. 2. 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 3. Otherwise unremarkable CT angiogram of the brain. 4. There is high-grade stenosis (greater than 75%) of the proximal right internal carotid artery. 5. Otherwise unremarkable CT angiogram of the neck. - CXR: No acute chest disease. Cardiomegaly is noted. CT-H: There is no hemorrhage, mass effect, or evidence of acute territorial ischemia by CT criteria. 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 Would likely benefit from PCSK9 inhibitor as outpatient, would attempt to get approved as outpatient given multiple statin intolerance and concern for TIA with hyperlipidemia Hypothyroidism - TSH pending - Continue sythroid 100mcg HTN - Continue amlodipine 5mg daily DVT PPx: SCDs, heparin SQ CODE (2) PAD (peripheral artery disease): (3) Impaired fasting glucose: (4) Arthritis, multiple joint involvement: (5) Hyperlipidemia: (6) HTN (hypertension): (7) Hypothyroidism: (8) Polyneuropathy: (9) Osteoporosis: (10) Vitamin D deficiency: History of Present Illness Primary Care Provider: Ramón Wallace MD Vilma Bautista is an 87-year-old female with a past medical history of sensorineural hearing loss, peripheral artery disease, arthritis, lumbar arthritis, hyperlipidemia, hypertension, hypothyroidism, polyneuropathy and vitamin D deficiency who presents with lightheadedness and left hand weakness. Symptoms began 1 day ago, lasted 15 minutes and she felt she had no control from her arm which moved on its own. Patient was unable to type. Episode yesterday resolved. After lunch today sx returned. Sx improving in ER but not normal. Vilma reports that over 2 days (yesterday and today) she had episodes where her LEFT hand wasn't working properly,. She reports she went to type on her keyboard and it seems to just keep drifting away from the keys, Arm seemed to loose coordination and strength and was 'floppy'. Symptoms included the hand and wrist. Improved after 15 minutes, then had a second episode around 11-noon today. Symptoms again improvement at time and 90% back but not quite as strong as normal. No numbness or tingling. No sx other than in the arm, but felt had a vague feeling of 'fogginess' without syncope/presyncope during the episodes. No chest pain or chest pressure No shortness of breath No difficulty breathing No N/V/D/C No syncope/presyncope No vision change No headache not sure if she took her BP medication today NO hx of DM, CVA Medical History: Reviewed Medications: Reviewed Surgical History: Reviewed Allergies: Reviewed. Sufa --> Hives. Statins (multiple trials) Social History: no tobacco product use, rare social alchol use, no medical marijuana use Code Status:Surrogate DM would be zechariah Bautista. DNR/DNI Allergies Allergy/AdvReac Type Severity Reaction Status Date / Time bee venom protein (honey bee) Allergy Severe swelling Verified 07/14/22 16:05 of lips/tongue/throat adhesive Allergy Intermediate rash Verified 07/14/22 16:05 latex Allergy Unknown RED/IRRITAT Verified 07/14/22 16:05 ION Sulfa (Sulfonamide Allergy Unknown HIVES Verified 07/14/22 16:05 Antibiotics) Nhwaarz-BWH-HeW Reductase AdvReac Unknown MUSCLE Verified 07/14/22 16:05 Inhibitor ACHES [Wuipkly-Lnz-Rty Reductase Inhibitor] Home Medications Medication Instructions Recorded Confirmed Type docusate sodium 100 mg capsule 100 mg PO DAILY PRN Constipation 05/10/19 07/14/22 History (Dulcolax Stool Softener (docusate)) travoprost 0.004 % eye drops 1 drops ophthalmic (eye) QPM 05/10/19 07/14/22 History (Travatan Z) cholecalciferol (vitamin D3) 25 1,000 units PO QAM 08/22/19 07/14/22 History mcg (1,000 unit) capsule levothyroxine 100 mcg tablet 100 mcg PO QAM #90 tabs 09/22/21 07/14/22 Rx (Levoxyl) aspirin 81 mg chewable tablet 81 mg PO DAILY #30 tabs 09/29/21 07/14/22 Rx ezetimibe 10 mg tablet (Zetia) 10 mg PO DAILY #30 tabs 02/09/22 07/14/22 Rx fluticasone propionate 50 1 spray intranasal BID #15.8 mL 04/29/22 07/14/22 Rx mcg/actuation nasal spray,suspension (Flonase Allergy Relief) mupirocin 2 % topical ointment 1 applic topical BID #22 grams 04/29/22 07/14/22 Rx amlodipine 5 mg tablet 5 mg PO QAM #90 tabs 07/03/22 07/14/22 Rx calcium carbonate 600 mg-vitamin 1 tab PO DAILY 07/14/22 07/14/22 History D3 5 mcg (200 unit) tablet omega 8-uim-vja-fish oil 1,000 mg 1 cap PO DAILY 07/14/22 07/14/22 History (120 mg-180 mg) capsule (Fish Oil) Past Med/Surg History Medical History Arthritis of lumbar spine Arthritis, multiple joint involvement Broken wrist Lt History of hyperlipidemia HTN (hypertension) Hyperlipidemia Hypothyroidism Osteoarthritis Osteoporosis PAD (peripheral artery disease) Paresthesias feet Polyneuropathy Sensorineural hearing loss of combined types, bilateral Solitary thyroid nodule Vitamin D deficiency Surgical History History of basal cell carcinoma face/back with removal History of cataract surgery History of colonoscopy History of tooth extraction wisdom teeth S/P colonoscopy S/P tonsillectomy and adenoidectomy Family History Aunt , Age 70 Breast cancer Colorectal cancer paternal Sister Colorectal cancer Diabetes Hyperlipidemia Environmental allergies Asthma Uncle Colorectal cancer paternal Grandmother (Paternal) Colorectal cancer Father , AGE 62 Myocardial infarction FIRST GA AGE 49 Cardiovascular disease Heart disease Mother , Age 92 Bladder cancer Grandfather (Paternal) Colorectal cancer Other No family history of adverse response to anesthesia No family history of bleeding disorder Denies family history of Ovarian cancer Prostate cancer Kidney disease Lung cancer Hypertension Stroke Social History Smoking Status: Never smoker Second Hand Exposure: No; Hx Alcohol Use: Yes Alcohol type: beer and wine Alcohol Intake Frequency: 2-3 x/Week Hx Substance Use: No Preferred Language: Nepali Communication Ability: Effective Visual Impairment: Limited Hearing Ability: Hard of Hearing Fpga Engineer Required: No Beliefs That Will Affect Care: None marital status: / Current Living Situation: Alone current occupational status: retired 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 NAD. Cooperative. HEENT: Atraumatic, normocephalic. Pulm: CTAB A&P. -wheezes, -rales, -rhonchi. Symmetrical chest rise. No increased work of breathing. No respiratory distress. Cardiac: RRR, -mrg. Radial pulses intact and symmetrical. Abdominal: Nontender, nondistended, soft. BS present. CRANIAL NERVES: II: Pupils equal and reactive, no relative afferent pupillary defect, no VF cuts III, IV, : EOM intact, no gaze preference or deviation, no nystagmus. V: normal sensation in V1, V2, and V3 segments bilaterally VII: no asymmetry, no nasolabial fold flattening VIII: normal hearing to speech IX, X: normal palatal elevation, no uvular deviation XI: 5/5 head turn and 5/5 shoulder shrug bilaterally XII: midline tongue protrusion MOTOR: RUE: 5/5 Shoulder internal rotation, external rotation, flexion, extension, abduction, adduction 5/5 Elbow flexion/extension, wrist flexion/extension 5/5 utilization review coordinator strength, finger flexion/extension, interosseus LUE: 5/5 Shoulder internal rotation, external rotation, flexion, extension, abduction, adduction 5/5 Elbow flexion/extension, wrist flexion/extension 5/5 utilization review coordinator strength, finger flexion/extension, interosseus RLE: 5/5 to hip flexion/extension, knee flexion/extension, ankle dorsiflexion/plantarflexion LLE: 5/5 to hip flexion/extension, knee flexion/extension, ankle dorsiflexion/plantarflexion REFLEXES: 2/4 patellar, bicepts, and achilles DTR without asymmetry. Bilateral flexor planter response, no Valenzuela's, no clonus SENSORY: Normal to touch, in upper and lower extremities without deficit or asymmetry COORD: Normal finger to nose and heel to huggins, no tremor, no dysmetria Results & Data Results & Data ([facility]) Vital Signs (Past 12 Hours) Vital Signs Temp Pulse Pulse Resp BP BP Pulse Ox 07/14/22 17:00 71 20 178/70 H 95 07/14/22 15:00 60 20 153/67 H 96 07/14/22 15:00 98 07/14/22 14:22 20 143/68 H 96 07/14/22 13:09 36.8 C 76 20 161/73 H 95 O2 Del Method 07/14/22 17:00 Room Air 07/14/22 15:00 Room Air 07/14/22 15:00 Room Air 07/14/22 14:22 Room Air 07/14/22 13:09 Room Air PG Care Time/CCT Total # of Minutes Spent Total Time Spent with Patient: Total time spent is greater than 50% in coordination of care (as documented) at patient's floor/unit and/or counseling patient: Coding Level of Care Code INT OBSERVATION CARE 50M LVL 2 Diagnoses Left hand weakness R29.898 PAD (peripheral artery disease) I73.9 Impaired fasting glucose R73.01 Arthritis, multiple joint involvement M12.9 Hyperlipidemia E78.5 HTN (hypertension) I10 Hypertension type: essential hypertension Hypothyroidism E03.9 Hypothyroidism type: acquired Polyneuropathy G62.9 Osteoporosis M81.0 Vitamin D deficiency E55.9 (1) HTN (hypertension) Hypertension type: essential hypertension Qualified Code(s): I10 - Essential (primary) hypertension (2) Hypothyroidism Hypothyroidism type: acquired Qualified Code(s): E03.9 - Hypothyroidism, unspecified
[2022-07-14] MEDS ORDERED: amLODIPine BESYLATE 5 MG TAB PO ONE (18:09)
[2022-07-14] MEDS ORDERED: ACETAMINOPHEN 325 MG TAB PO PRN (21:22)
[2022-07-14] MEDS ORDERED: POLYETHYLENE (MIRALAX) 17 GM PACK PO PRN (21:22)
[2022-07-14] MEDS ORDERED: PHARMACIST DISCHARGE MED REC CONSULT PRN (21:22)
[2022-07-14] MEDS: TRAVOPROST Z 0.004% OPH SOLN 2.5 ML BTL OP SCH (21:54)
[2022-07-14] MEDS: amLODIPine BESYLATE 5 MG TAB PO SCH (21:54)
[2022-07-15] MEDS: LEVOTHYROXINE SODIUM 100 MCG TABLET PO SCH (06:17)
[2022-07-15 07:54] LABS: Basophils % (auto) 1.1 %; Eosinophils # (auto) 0.22 K/uL (0-0.50); Eosinophils % (auto) 2.5 %; Hematocrit (blood only) 43.8 % (34.1-44.9); Hemoglobin 14.6 g/dl (12.0-16.0); Immature Granulocytes # (auto) 0.02 K/uL (0.00-0.02); Immature Granulocytes % (auto) 0.2 %; Lymphocytes # (auto) 2.27 K/uL (1.2-3.4); Lymphocytes % (auto) 25.9 %; Mean Corpuscular Hemoglobin 29.7 pg (25.0-34.0); Mean Corpuscular Hgb Conc 33.3 g/dL (32.0-36.0); Mean Corpuscular Volume 89.2 fL (80.0-100.0); Mean Platelet Volume 11.1 fL (9.4-12.3); Monocytes % (auto) 10.3 %; Neutrophils # (auto) 5.27 K/uL (1.4-6.5); Platelet Count 344 K/uL (130-400); RDW Coefficient of Variation 14.4 % (11.5-14.5); RDW Standard Deviation 46.7 fL (36.4-46.3); Red Blood Count 4.91 M/uL (3.93-5.22); White Blood Count 8.78 K/ul (4.8-10.8)
[2022-07-15] MEDS: HEPARIN SOD 5,000 UNIT/0.5 ML VIAL SQ SCH ×2 (08:22→19:46)
[2022-07-15] MEDS: CLOPIDOGREL BISULFATE 75 MG TAB PO SCH (08:22)
[2022-07-15] MEDS: amLODIPine BESYLATE 5 MG TAB PO SCH (08:23)
[2022-07-15] MEDS: OMEGA-3 (PURIFIED FISH OIL) 1 GM CAP PO SCH (08:23)
[2022-07-15] MEDS: EZETIMIBE 10 MG TABLET PO SCH (08:23)
[2022-07-15 08:24] LABS: BUN Creatinine Ratio 17.9 (10-20); Calcium 9.5 mg/dl (8.5-10.1); Chol HDL Ratio 3.6 (0-5); Creatinine Clr Calc Pharmacy 66.3 ml/min; Est GFR (African American) 97.2 ml/min; Est GFR (Non-African American) 83.8 ml/min; Potassium 3.9 mmol/L (3.5-5.1)
[2022-07-15 08:43] LABS: Estimated Average Glucose 114 mg/dl; Hemoglobin A1C 5.6 % (4.5-5.6)
--- NOTE | 2022-07-15 09:37 | Magnetic Resonance Report ---
MR brain wo con HISTORY: 87 years-old Female TIA/CVA eval acute strokelike symptoms COMPARISON: Head CT 07/14/2022 TECHNIQUE: Multiplanar multisequence MRI of the brain was obtained without the use of IV contrast. FINDINGS: There a few scattered punctate foci of restricted diffusion involving the right frontal lobe as seen on images 17 and 18 of series 4. Additional areas of restricted diffusion are noted within the right temporal and occipital lobes measuring up to 2 cm image 14 series 4. These areas demonstrate mildly d ecreased signal on ADC map. No acute or subacute Midline structures appear unremarkable. Degenerative changes of the imaged cervical spine. No acute i ntracranial hemorrhage, midline shift, abnormal x-ray axial collection, hydrocephalus or intracranial mass. Age-related involutional changes. Mild scattered T2/FLAIR hyperintense foci throughout the whi te matter suggest chronic microvascular ischemic disease. Cerebral venous sinuses and major arterial flow voids appear patent. The skull and soft tissues are u nremarkable. Paranasal sinuses are generally clear. Prior bilateral lens repair. IMPRESSION: 1. Punctate acute infarcts within the right frontal lobe with additional small areas of acute infarct ion noted within the posterior right temporal and occipital lobe. Based on the multi vascular territo ry distribution, a proximal thromboembolic source is considered. Echocardiogram recommended. 2. No acute intracranial hemorrhage or midline shift. 3. Involutional changes with mild chronic microvascular ischemic disease. ACT 112: Negative or not required by law. The above report was generated using voice recognition software. It may contain grammatical, syntax o r spelling errors. Electronically signed by: Ant Mansfield M.D. 07/15/2022 9:36 AM
[2022-07-15] MEDS: ASPIRIN 81 MG ECTAB PO SCH (10:07)
--- NOTE | 2022-07-15 11:07 | Neurology Consultation ---
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 Patient's neurological examination is currently intact, without evidence of hemiparesis or vision loss, and spite of the observed acute infarcts within the right frontal lobe and right temporal and occipital lobes on MRI. Stroke risk factors for this patient include hypertension and hyperlipidemia. She has a history of intolerance to statins and has been on Zetia. I agree with vascular surgery consultation as ordered as patient will likely need a right carotid endarterectomy. Follow-up with results of echocardiogram. I agree with the addition of clopidogrel to patient's current medication regimen, should continue with dual antiplatelet therapy, clopidogrel 75 mg/day, and aspirin 81 mg/day for the time being. Goal systolic blood pressure 140 to 160 mmHg acutely. Consider reducing amlodipine dosage acutely to avoid hypotension. Continue with Zetia for management of hyperlipidemia. Patient may be an appropriate candidate for an alternative treatment for hyperlipidemia as an outpatient. Would recommend outpatient visual field assessment given that she does have evidence of a small stroke within the right occipital lobe. (I do not find an obvious hemianopsia with confrontation testing, however.) History of Present Illness Reason for Consultation: stroke Requesting Physician: Lon Monahan MD Attending Physician: Lon Monahan MD History of Present Illness The patient is an 87-year-old female who presented to the emergency department yesterday with a chief complaint of intermittent left upper extremity weakness and heaviness beginning the previous day. She recalls having associated difficulty working the keyboard with her left hand. The symptoms had recurred again, yesterday around noon and had been persistent, thus prompting her evaluation in the emergency department. She denies any associated headache, vision loss, or change in speech. Her blood pressure was modestly elevated at the time of presentation, 161/73. Blood glucose was 86. A CT of the head was negative for hemorrhage or acute process. 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 A brain MRI revealed a punctate infarct within the right frontal lobe with additional smaller areas of acute infarct within the posterior right temporal and occipital lobes. A proximal embolic source was suggested. I did independently review these images and agree with the findings as described by the interpreting radiologist. An electrocardiogram had revealed a normal sinus rhythm. Past medical history is notable for hypertension and hyperlipidemia. The patient takes daily low-dose aspirin, Zetia, and amlodipine as an outpatient. She has a history of intolerance to statins. An echocardiogram has been ordered. This morning, the patient reports that her symptoms are resolved, no residual weakness of the left upper extremity. She denies experiencing any vision loss as well. Allergies Allergy/AdvReac Type Severity Reaction Status Date / Time bee venom protein (honey bee) Allergy Severe swelling Verified 07/14/22 16:05 of lips/tongue/throat adhesive Allergy Intermediate rash Verified 07/14/22 16:05 latex Allergy Unknown RED/IRRITAT Verified 07/14/22 16:05 ION Sulfa (Sulfonamide Allergy Unknown HIVES Verified 07/14/22 16:05 Antibiotics) Lmikyuh-PVL-CoV Reductase AdvReac Unknown MUSCLE Verified 07/14/22 16:05 Inhibitor ACHES [Kqriqvz-Uvz-Qvi Reductase Inhibitor] Home Medications Medication Instructions Recorded Confirmed Type docusate sodium 100 mg capsule 100 mg PO DAILY PRN Constipation 05/10/19 07/14/22 History (Dulcolax Stool Softener (docusate)) travoprost 0.004 % eye drops 1 drops ophthalmic (eye) QPM 05/10/19 07/14/22 History (Travatan Z) cholecalciferol (vitamin D3) 25 1,000 units PO QAM 08/22/19 07/14/22 History mcg (1,000 unit) capsule levothyroxine 100 mcg tablet 100 mcg PO QAM #90 tabs 09/22/21 07/14/22 Rx (Levoxyl) aspirin 81 mg chewable tablet 81 mg PO DAILY #30 tabs 09/29/21 07/14/22 Rx ezetimibe 10 mg tablet (Zetia) 10 mg PO DAILY #30 tabs 02/09/22 07/14/22 Rx fluticasone propionate 50 1 spray intranasal BID #15.8 mL 04/29/22 07/14/22 Rx mcg/actuation nasal spray,suspension (Flonase Allergy Relief) mupirocin 2 % topical ointment 1 applic topical BID #22 grams 04/29/22 07/14/22 Rx amlodipine 5 mg tablet 5 mg PO QAM #90 tabs 07/03/22 07/14/22 Rx calcium carbonate 600 mg-vitamin 1 tab PO DAILY 07/14/22 07/14/22 History D3 5 mcg (200 unit) tablet omega 9-faw-rsg-fish oil 1,000 mg 1 cap PO DAILY 07/14/22 07/14/22 History (120 mg-180 mg) capsule (Fish Oil) Patient History Medical History Arthritis of lumbar spine Arthritis, multiple joint involvement Broken wrist Lt History of hyperlipidemia HTN (hypertension) Hyperlipidemia Hypothyroidism Osteoarthritis Osteoporosis PAD (peripheral artery disease) Paresthesias feet Polyneuropathy Sensorineural hearing loss of combined types, bilateral Solitary thyroid nodule Vitamin D deficiency Surgical History History of basal cell carcinoma face/back with removal History of cataract surgery History of colonoscopy History of tooth extraction wisdom teeth S/P colonoscopy S/P tonsillectomy and adenoidectomy Family History Aunt , Age 70 Breast cancer Colorectal cancer paternal Sister Colorectal cancer Diabetes Hyperlipidemia Environmental allergies Asthma Uncle Colorectal cancer paternal Grandmother (Paternal) Colorectal cancer Father , AGE 62 Myocardial infarction FIRST CA AGE 49 Cardiovascular disease Heart disease Mother , Age 92 Bladder cancer Grandfather (Paternal) Colorectal cancer Other No family history of adverse response to anesthesia No family history of bleeding disorder Denies family history of Ovarian cancer Prostate cancer Kidney disease Lung cancer Hypertension Stroke Social History Smoking Status: Never smoker Second Hand Exposure: No; Do You Dip or Chew Tobacco: No; Tobacco Cessation Education Requested by Patient: No Hx Alcohol Use: No Hx Substance Use: No Preferred Language: Danish Communication Ability: Effective Visual Impairment: Limited Hearing Ability: Hard of Hearing Passenger Service Agent Required: No Beliefs That Will Affect Care: None marital status: / Current Living Situation: Alone current occupational status: retired 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 How many Children do You have: 1 Other Information That Helps Us Care for You: No Feels Safe at Home: Yes Safety Concerns: Feels Safe At This Time Childhood Exposure to Second-Hand Smoke: Yes caffeine: Yes (coffee) Dental Care, Regularly: Yes Physical Activity Frequency: 3-4 Times per Week Seatbelt Use: always Sunscreen Use: Yes Assistive Devices: Cane Assistive Devices Comment: cane prn Review of Systems Constitutional: no fever and no chills Eyes: no blind spots and no diplopia Ear, Nose, Mouth, Throat: no hearing loss Respiratory: no cough and no dyspnea Cardiovascular: no chest pain and no palpitations Gastrointestinal: no nausea and no vomiting Genitourinary: no dysuria Musculoskeletal: no back pain and no neck pain Integumentary: no rash and no lesions Neurologic: as per Subjective / HPI Psychiatric: no depression and no anxiety Hematologic / Lymphatic: no easy bleeding and no easy bruising Exam (Neuro) Constitutional: well developed and well nourished; no acute distress Eyes: normal visual rios by confrontation, PERRL, normal accommodation and EOM intact bilaterally; no fundoscopic abnormality, no nystagmus and no papil ledema Cardiovascular: Vessels: normal carotid upstroke; no carotid bruit Neurologic: Oriented to:: Person, Place and Time Memory: Short Term Intact and Remote Intact Attention: Span Intact and Concentration Intact Language : Naming Objects and Repeating Phrases Speech Fluency: negative Dysarthria Speech Aphasia: negative Aphasia Fund of Knowledge: Current Events, Past History and Vocabulary Cranial Nerves: Normal II (Visual rios full to confrontation, visual acuity normal), III, IV, (Pupils equal round reactive to light and accommodation, eye movements normal), V (Facial sensation intact), VII (There is no facial droop or weakness), VIII (Hearing intact), IX, X (Palate elevates to midline), XI (Shoulder shrug intact) and XII (Tongue protrudes to midline) Motor Strength: Normal Lower Extremities and Normal Upper Extremities; negative Pronator Drift Motor Tone: Normal Lower Extremities and Normal Upper Extremities Muscle Bulk/Involuntary Movements: No Involuntary Movements; negative Muscle Atrophy Sensation: Light Touch Intact, Pain/Temperature Intact, Vibration Intact and Proprioception Intact Coordination: Normal; negative Limited Balance, Dysdiadochokinesia, Finger-Nose Abnormal or Heel-Walton Abnormal Deep Tendon Reflexes: Rt Triceps: 2+, Lt Triceps: 2+, Rt Biceps: 2+, Lt Biceps: 2+, Rt Brachioradialis: 2+, Lt Brac hioradialis: 2+, Rt Patellar: 2+, Lt Patellar: 2+, Rt Ankle: 1+ and Lt Ankle: 1+ Special Tests: negative Babinski Present Gait: Normal Station and Gait Results & Data ([facility]) Vital Signs (Past 12 Hours) Vital Signs Temp Pulse Pulse Pulse Resp BP Pulse Ox 07/15/22 07:38 36.5 C 90 20 135/68 97 07/15/22 03:43 36.7 C 60 18 126/63 97 07/14/22 23:13 67 O2 Del Method 07/15/22 07:38 Room Air 07/15/22 03:43 Room Air 07/14/22 23:13 Laboratory Results WBC 8.78, hemoglobin 14.6, hematocrit 43.8, MCV 89.2, platelet count 344, sodium 139, potassium 3.9, BUN 10, creatinine 0.56, glucose 86, hemoglobin A1c 5.6, calcium 9.5, magnesium 2.5, AST 15, ALT 13, triglycerides 90, cholesterol 231, LDL 148, VLDL 18, HDL 65, SARS-CoV-[address] Findings CT angiography of the head and neck and brain MRI are as described above in the history of present illness, I reviewed the images as well as the radiologist's interpretation of these tests. Electrocardiogram reveals a normal sinus rhythm, 64 bpm. 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
--- NOTE | 2022-07-15 11:55 | Electrocardiogram Report ---
Test Reason : Blood Pressure : / mmHG Vent. Rate : 064 BPM Atrial Rate : 064 BPM P-R Int : 130 ms QRS Dur : 084 ms QT Int : 414 ms P-R-T Axes : 064 055 039 degrees QTc Int : 427 ms Normal sinus rhythm Early repolarization Normal ECG No previous ECGs available Confirmed by Branden Toney ([id number]) on 07/15/2022 11:55:15 AM Referred By: REFERRED SELF Confirmed By:Branden Toney
--- NOTE | 2022-07-15 14:01 | Hospitalist Progress Note ---
Date of Service July 15, 2022 Assessment & Plan (1) Left hand weakness: Plan: Vilma is an 87-year-old female who presents with 2 episodes of left hand weakness concerning for TIA, symptoms improved by time of hospitalist evaluation. tPA not indicated based on improving symptoms. Left hand weakness, CVA - CTA-Head/Neck: 1. There is no hemorrhage, mass effect, or evidence of acute territorial ischemia by CT criteria. 2. 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 3. Otherwise unremarkable CT angiogram of the brain. 4. There is high-grade stenosis (greater than 75%) of the proximal right internal carotid artery. 5. Otherwise unremarkable CT angiogram of the neck. - CXR: No acute chest disease. Cardiomegaly is noted. CT-H: There is no hemorrhage, mass effect, or evidence of acute territorial ischemia by CT criteria. 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 Concern for embolic stroke. Echo pending Lipids pending -> Seen by neuro. Given embolic picture, will watch closely for results of echo. If PFO, would get b/l Dopplers for paradoxical embolism. Certainly needs 1-month Holter vs. consideration of implanted loop recorder. Will touch base with Dr. 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 -> Vascular consulted for right ICA stenosis. Patient has been seen, but no note yet. HLD - Lipid panel pending - statin intolerant in past. Would likely benefit from PCSK9 inhibitor as outpatient, would attempt to get approved as outpatient given multiple statin intolerance and concern for TIA with hyperlipidemia Hypothyroidism - TSH pending - Continue Synthroid 100mcg HTN - Continue amlodipine 5mg daily DVT PPx: SCDs, heparin SQ CODE (2) PAD (peripheral artery disease): (3) Impaired fasting glucose: (4) Arthritis, multiple joint involvement: (5) Hyperlipidemia: (6) HTN (hypertension): (7) Hypothyroidism: (8) Polyneuropathy: (9) Osteoporosis: (10) Vitamin D deficiency: Admission and Anticipated Discharge Date Admission Date: July 14, 2022 Subjective Doing well today. No further left hand symptoms. Reports no fevers/chills, chest pain, shortness of breath, abdominal pain, nausea, or vomiting. Physical Exam Constitutional: WD/WN, vitals as above Eyes: EOM intact bilaterally; no conjunctival abnormality ENMT: external ear and nose normal, oropharynx normal Neck: trachea midline, no thyromegaly normal visual inspection Respiratory: normal respiratory effort, lungs clear to auscultation no respiratory distress Cardiovascular: RRR, no murmur, no edema Gastrointestinal (Abdomen): Inspection/Auscultation: abdomen normal to inspection; abdomen not distended Musculoskeletal: no cyanosis or clubbing, extremities motor strength 5/5 Skin: no rashes, warm and dry Neurologic: moves all extremities and awake Psychiatric: Orientation: alert, oriented to person and cooperative Results & Data Results & Data ([facility]) Vital Signs (Past 12 Hours) Vital Signs Temp Pulse Pulse Resp BP Pulse Ox O2 Del Method 07/15/22 12:00 37.0 C 68 17 136/62 95 Room Air 07/15/22 07:38 36.5 C 90 20 135/68 97 Room Air 07/15/22 03:43 36.7 C 60 18 126/63 97 Room Air PG Care Time/CCT Total # of Minutes Spent Total Time Spent with Patient: Total time spent is greater than 50% in coordination of care (as documented) at patient's floor/unit and/or counseling patient: Coding Level of Care Code 20310 Subseq Hosp Care Lvl 3 Diagnoses Left hand weakness R29.898 PAD (peripheral artery disease) I73.9 Impaired fasting glucose R73.01 Arthritis, multiple joint involvement M12.9 Hyperlipidemia E78.5 HTN (hypertension) I10 Hypertension type: essential hypertension Hypothyroidism E03.9 Hypothyroidism type: acquired Polyneuropathy G62.9 Osteoporosis M81.0 Vitamin D deficiency E55.9 (1) HTN (hypertension) Hypertension type: essential hypertension Qualified Code(s): I10 - Essential (primary) hypertension (2) Hypothyroidism Hypothyroidism type: acquired Qualified Code(s): E03.9 - Hypothyroidism, unspecified
--- NOTE | 2022-07-15 16:22 | Communication Note ---
Date of Service: July 15, 2022 I had the pleasure of seeing Mrs. Bautista today. Official consult will follow. At this point I added Plavix. I discussed the possibility of switching her to a statin for plaque stabilization. She is agreeable to go back on the stent at this point in time. Looking at her CAT scan she is a candidate for TCAR. We therefore need to load her with Plavix which I will do today followed by adding a loading dose and daily statin starting tomorrow. We then need to test her platelet function and response to Plavix early next week. We will then plan on doing a TCAR most likely of next week.
[2022-07-15] MEDS ORDERED: CLOPIDOGREL BISULFATE 300 MG TAB PO STA (16:23)
[2022-07-15] MEDS: TRAVOPROST Z 0.004% OPH SOLN 2.5 ML BTL OP SCH (19:47)
[2022-07-16] MEDS: LEVOTHYROXINE SODIUM 100 MCG TABLET PO SCH (06:09)
[2022-07-16 06:17] LABS: Hematocrit (blood only) 42.1 % (34.1-44.9); Mean Corpuscular Hemoglobin 29.4 pg (25.0-34.0); Mean Corpuscular Hgb Conc 33.3 g/dL (32.0-36.0); Mean Corpuscular Volume 88.3 fL (80.0-100.0); Mean Platelet Volume 11.3 fL (9.4-12.3); Platelet Count 318 K/uL (130-400); RDW Coefficient of Variation 14.2 % (11.5-14.5); RDW Standard Deviation 46.2 fL (36.4-46.3); Red Blood Count 4.77 M/uL (3.93-5.22); White Blood Count 7.67 K/ul (4.8-10.8)
[2022-07-16 06:38] LABS: BUN Creatinine Ratio 23.3 (10-20); Calcium 9.2 mg/dl (8.5-10.1); Creatinine Clr Calc Pharmacy 61.8 ml/min; Magnesium 2.4 mg/dl (1.7-2.4)
--- NOTE | 2022-07-16 07:58 | Consultation ---
Date of Consultation July 16, 2022 Assessment & Plan (1) Stenosis of right internal carotid artery: This appears to be an embolic event from a significant narrowing of her right carotid artery. Treatment of her carotid was discussed. The options are endarterectomy vs TCAR. For the TCAR she needs to be on dual antiplatelet and have a positive response to plavix testing. She also has to be on a statin pre op and for at least 4 weeks post op. She did say she had problems with statins years ago. She was willing to try statins again and go ahead with a TCAR procedure. I have discussed the risks options and benefits of the procedure with the patient. The patient understands the risks options and benefits and agrees to the procedure. We will load her with plavix and statins and plan on a TCAR next . She has to be on these meds for at least 5 days prior to the procedure. She also andrea l need to be tested for plavix resistance early next week. History of Present Illness Reason for Consultation: Right internal carotid artery stenosis, symptomatic Attending Physician: Gena Dempsey MD History of Present Illness This is an 87-year-old female who presented to the emergency department intermittent left upper extremity weakness and heaviness beginning the previous day. This resulted in left hand weakness the day before admission and it recurred the day of admission. She claims her left hand is now back to normal. She denies any associated headache, vision loss, or change in speech. Her blood pressure was elevated at her ED visit at 161/73. A CT of the head was negative for hemorrhage or acute process. 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 A brain MRI revealed a punctate infarct within the right frontal lobe with additional smaller areas of acute infarct within the posterior right temporal and occipital lobes. Past medical history is positive for hypertension and hyperlipidemia. The patient takes daily low-dose aspirin, Zetia, and amlodipine. She has a history of intolerance to statins. Allergies Allergy/AdvReac Type Severity Reaction Status Date / Time bee venom protein (honey bee) Allergy Severe swelling Verified 07/14/22 16:05 of lips/tongue/throat adhesive Allergy Intermediate rash Verified 07/14/22 16:05 latex Allergy Unknown RED/IRRITAT Verified 07/14/22 16:05 ION Sulfa (Sulfonamide Allergy Unknown HIVES Verified 07/14/22 16:05 Antibiotics) Ixkvvgd-HQZ-VqB Reductase AdvReac Unknown MUSCLE Verified 07/14/22 16:05 Inhibitor ACHES [Iwqunvt-Vbf-Lio Reductase Inhibitor] Home Medications Medication Instructions Recorded Confirmed Type docusate sodium 100 mg capsule 100 mg PO DAILY PRN Constipation 05/10/19 07/14/22 History (Dulcolax Stool Softener (docusate)) travoprost 0.004 % eye drops 1 drops ophthalmic (eye) QPM 05/10/19 07/14/22 History (Travatan Z) cholecalciferol (vitamin D3) 25 1,000 units PO QAM 08/22/19 07/14/22 History mcg (1,000 unit) capsule levothyroxine 100 mcg tablet 100 mcg PO QAM #90 tabs 09/22/21 07/14/22 Rx (Levoxyl) aspirin 81 mg chewable tablet 81 mg PO DAILY #30 tabs 09/29/21 07/14/22 Rx ezetimibe 10 mg tablet (Zetia) 10 mg PO DAILY #30 tabs 02/09/22 07/14/22 Rx fluticasone propionate 50 1 spray intranasal BID #15.8 mL 04/29/22 07/14/22 Rx mcg/actuation nasal spray,suspension (Flonase Allergy Relief) mupirocin 2 % topical ointment 1 applic topical BID #22 grams 04/29/22 07/14/22 Rx amlodipine 5 mg tablet 5 mg PO QAM #90 tabs 07/03/22 07/14/22 Rx calcium carbonate 600 mg-vitamin 1 tab PO DAILY 07/14/22 07/14/22 History D3 5 mcg (200 unit) tablet omega 5-lzb-tlh-fish oil 1,000 mg 1 cap PO DAILY 07/14/22 07/14/22 History (120 mg-180 mg) capsule (Fish Oil) Patient History Medical History Arthritis of lumbar spine Arthritis, multiple joint involvement Broken wrist Lt History of hyperlipidemia HTN (hypertension) Hyperlipidemia Hypothyroidism Osteoarthritis Osteoporosis PAD (peripheral artery disease) Paresthesias feet Polyneuropathy Sensorineural hearing loss of combined types, bilateral Solitary thyroid nodule Vitamin D deficiency Surgical History History of basal cell carcinoma face/back with removal History of cataract surgery History of colonoscopy History of tooth extraction wisdom teeth S/P colonoscopy S/P tonsillectomy and adenoidectomy Family History Aunt , Age 70 Breast cancer Colorectal cancer paternal Sister Colorectal cancer Diabetes Hyperlipidemia Environmental allergies Asthma Uncle Colorectal cancer paternal Grandmother (Paternal) Colorectal cancer Father , AGE 62 Myocardial infarction FIRST PR AGE 49 Cardiovascular disease Heart disease Mother , Age 92 Bladder cancer Grandfather (Paternal) Colorectal cancer Other No family history of adverse response to anesthesia No family history of bleeding disorder Denies family history of Ovarian cancer Prostate cancer Kidney disease Lung cancer Hypertension Stroke Social History Smoking Status: Never smoker Second Hand Exposure: No; Do You Dip or Chew Tobacco: No; Tobacco Cessation Education Requested by Patient: No Hx Alcohol Use: No Hx Substance Use: No Preferred Language: French Communication Ability: Effective Visual Impairment: Limited Hearing Ability: Hard of Hearing Bar Tacker Required: No Beliefs That Will Affect Care: None marital status: / Current Living Situation: Alone current occupational status: retired 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 How many Children do You have: 1 Other Information That Helps Us Care for You: No Feels Safe at Home: Yes Safety Concerns: Feels Safe At This Time Childhood Exposure to Second-Hand Smoke: Yes caffeine: Yes (coffee) Dental Care, Regularly: Yes Physical Activity Frequency: 3-4 Times per Week Seatbelt Use: always Sunscreen Use: Yes Assistive Devices: Cane Assistive Devices Comment: cane prn Review of Systems Review of Systems: All systems reviewed & are unremarkable except as noted in HPI & below Physical Exam Constitutional: WD/WN, vitals as above Eyes: reactive pupils; no EOM movement deficit Respiratory: normal respiratory effort, lungs clear to auscultation Cardiovascular: RRR, no murmur, no edema Vessels: femoral pulses present and radial pulses present Extremities: normal capillary refill Gastrointestinal (Abdomen): normal bowel sounds, soft, nontender, no hepatosplenomegaly Musculoskeletal: no cyanosis or clubbing, extremities motor strength 5/5 Neurologic: CN's II-XI intact bilaterally and moves all extremities Psychiatric: Orientation: alert and oriented x 3 Results & Data ([facility]) Vital Signs (Past 12 Hours) Vital Signs Temp Pulse Resp BP Pulse Ox O2 Del Method 07/16/22 03:02 36.6 C 60 16 112/62 95 Room Air 07/15/22 22:51 36.7 C 65 16 134/58 L 96 Room Air
[2022-07-16] MEDS: EZETIMIBE 10 MG TABLET PO SCH (08:09)
[2022-07-16] MEDS: amLODIPine BESYLATE 5 MG TAB PO SCH (08:09)
[2022-07-16] MEDS: CLOPIDOGREL BISULFATE 75 MG TAB PO SCH (08:09)
[2022-07-16] MEDS: OMEGA-3 (PURIFIED FISH OIL) 1 GM CAP PO SCH (08:09)
[2022-07-16] MEDS: ASPIRIN 81 MG ECTAB PO SCH (08:09)
[2022-07-16] MEDS: HEPARIN SOD 5,000 UNIT/0.5 ML VIAL SQ SCH (08:10)
[2022-07-16] MEDS ORDERED: ATORVASTATIN 40 MG TAB PO ONE (08:30)
[2022-07-16] MEDS ORDERED: STROKE PATIENT DISCHARGE STA (12:48)
--- NOTE | 2022-07-16 13:34 | Pharmacy Report ---
Pharmacist Stroke Counseling - Date of Service July 16, 2022 - Scope: Pharmacy has been consulted to provide medication discharge counseling for this patient admitted with ischemic stroke as per the Pharmacist Discharge Counseling for Stroke Patients Protocol. - Medications on Discharge: Home Medications Medication Instructions Recorded Confirmed docusate sodium 100 mg capsule 100 mg PO DAILY PRN Constipation 05/10/19 07/14/22 (Dulcolax Stool Softener (docusate)) travoprost 0.004 % eye drops 1 drops ophthalmic (eye) QPM 05/10/19 07/14/22 (Travatan Z) cholecalciferol (vitamin D3) 25 1,000 units PO QAM 08/22/19 07/14/22 mcg (1,000 unit) capsule calcium carbonate 600 mg-vitamin 1 tab PO DAILY 07/14/22 07/14/22 D3 5 mcg (200 unit) tablet omega 0-spa-usi-fish oil 1,000 mg 1 cap PO DAILY 07/14/22 07/14/22 (120 mg-180 mg) capsule (Fish Oil) New Rx's Medication Instructions Recorded levothyroxine 100 mcg tablet 100 mcg PO QAM #90 tabs 09/22/21 (Levoxyl) aspirin 81 mg chewable tablet 81 mg PO DAILY #30 tabs 09/29/21 ezetimibe 10 mg tablet (Zetia) 10 mg PO DAILY #30 tabs 02/09/22 fluticasone propionate 50 1 spray intranasal BID #15.8 mL 04/29/22 mcg/actuation nasal spray,suspension (Flonase Allergy Relief) mupirocin 2 % topical ointment 1 applic topical BID #22 grams 04/29/22 amlodipine 5 mg tablet 5 mg PO QAM #90 tabs 07/03/22 atorvastatin 40 mg tablet 40 mg PO QAM 30 days #30 tabs 07/16/22 clopidogrel 75 mg tablet 75 mg PO QAM 30 days #30 tabs 07/16/22 - Action: The above medications, specifically ones for stroke treatment/prophylaxis, have been reviewed in detail with the patient and/or patient insurance account representative(s) prior to discharge. This includes indication, common adverse reactions, drug interactions, and medication administration. Medication counseling has been employed using the teach-back method to ensure understanding. - Outcome: The patient and/or patient insurance account representative(s) have demonstrated understanding of the medications. Additional comments: Plavix is a new medication for Ms Bautista. We reviewed the precautions when taking anti-platelet therapy (now DAPT). I suggested taking her ASA/Plavix with food to minimize GI upset. She was grateful for the conversation and happy to have a new pill organizer. She will be coming back next week (07/23) for TCAR (transcarotid artery revascularization) with Dr Sheldon. Thank you for allowing pharmacy to be involved in the care of this patient. Please call [phone] with any additional questions
--- NOTE | 2022-07-16 16:08 | Hospitalist Progress Note ---
Date of Service July 16, 2022 Assessment & Plan (1) Left hand weakness: Plan: Vilma is an 87-year-old female who presents with 2 episodes of left hand weakness concerning for TIA, symptoms improved by time of hospitalist evaluation. tPA not indicated based on improving symptoms. Left hand weakness, CVA - CTA-Head/Neck: 1. There is no hemorrhage, mass effect, or evidence of acute territorial ischemia by CT criteria. 2. 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 3. Otherwise unremarkable CT angiogram of the brain. 4. There is high-grade stenosis (greater than 75%) of the proximal right internal carotid artery. 5. Otherwise unremarkable CT angiogram of the neck. - CXR: No acute chest disease. Cardiomegaly is noted. CT-H: There is no hemorrhage, mass effect, or evidence of acute territorial ischemia by CT criteria. 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 Concern for embolic stroke. Echo pending Lipids pending -> Seen by neuro. Given embolic picture, will watch closely for results of echo. If PFO, would get b/l Dopplers for paradoxical embolism. Certainly needs 1-month Holter vs. consideration of implanted loop recorder. 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 -> Vascular consulted for right ICA stenosis. Patient has been seen, but no note yet. HLD - Lipid panel pending - statin intolerant in past. Would likely benefit from PCSK9 inhibitor as outpatient, would attempt to get approved as outpatient given multiple statin intolerance and concern for TIA with hyperlipidemia Hypothyroidism - TSH pending - Continue Synthroid 100mcg HTN - Continue amlodipine 5mg daily DVT PPx: SCDs, heparin SQ CODE (2) PAD (peripheral artery disease): (3) Impaired fasting glucose: (4) Arthritis, multiple joint involvement: (5) Hyperlipidemia: (6) HTN (hypertension): (7) Hypothyroidism: (8) Polyneuropathy: (9) Osteoporosis: (10) Vitamin D deficiency: Admission and Anticipated Discharge Date Admission Date: July 15, 2022 Results & Data Results & Data ([facility]) Vital Signs (Past 12 Hours) Vital Signs Temp Pulse Pulse Pulse Resp BP BP 07/16/22 08:00 59 L 07/16/22 13:57 97.2 F L 60 65 20 126/55 L 132/64 07/16/22 11:53 97.2 F L 65 20 132/64 07/16/22 07:50 97.7 F 58 L 18 126/55 L Pulse Ox O2 Del Method 07/16/22 08:00 07/16/22 13:57 94 07/16/22 11:53 94 Room Air 07/16/22 07:50 95 Room Air PG Care Time/CCT Total # of Minutes Spent Total Time Spent with Patient: Total time spent is greater than 50% in coordination of care (as documented) at patient's floor/unit and/or counseling patient: Coding Diagnoses Left hand weakness R29.898 PAD (peripheral artery disease) I73.9 Impaired fasting glucose R73.01 Arthritis, multiple joint involvement M12.9 Hyperlipidemia E78.5 HTN (hypertension) I10 Hypothyroidism E03.9 Hypothyroidism type: acquired Polyneuropathy G62.9 Osteoporosis M81.0 Vitamin D deficiency E55.9 (1) Hypothyroidism Hypothyroidism type: acquired Qualified Code(s): E03.9 - Hypothyroidism, unspecified
--- NOTE | 2022-07-16 16:11 | Discharge Summary ---
Date of Service July 16, 2022 Admission HPI Per Admitting Provider Vilma Bautista is an 87-year-old female with a past medical history of sensorineural hearing loss, peripheral artery disease, arthritis, lumbar arthritis, hyperlipidemia, hypertension, hypothyroidism, polyneuropathy and vitamin D deficiency who presents with lightheadedness and left hand weakness. Symptoms began 1 day ago, lasted 15 minutes and she felt she had no control from her arm which moved on its own. Patient was unable to type. Episode yesterday resolved. After lunch today sx returned. Sx improving in ER but not normal. Vilma reports that over 2 days (yesterday and today) she had episodes where her LEFT hand wasn't working properly,. She reports she went to type on her keyboard and it seems to just keep drifting away from the keys, Arm seemed to loose coordination and strength and was 'floppy'. Symptoms included the hand and wrist. Improved after 15 minutes, then had a second episode around 11-noon today. Symptoms again improvement at time and 90% back but not quite as strong as normal. No numbness or tingling. No sx other than in the arm, but felt had a vague feeling of 'fogginess' without syncope/presyncope during the episodes. No chest pain or chest pressure No shortness of breath No difficulty breathing No N/V/D/C No syncope/presyncope No vision change No headache not sure if she took her BP medication today NO hx of DM, CVA Medical History: Reviewed Medications: Reviewed Surgical History: Reviewed Allergies: Reviewed. Sufa --> Hives. Statins (multiple trials) Social History: no tobacco product use, rare social alchol use, no medical marijuana use Code Status:Surrogate DM would be son Albaro Bautista. DNR/DNI Principal Diagnosis acute stroke Discharge Exam The patient is awake, alert and oriented 3, well developed and well nourished, normocephalic and atraumatic, lying in bed and in no acute distress. HEENT--PERRL, EOMI, mucous membranes and oropharynx mildly dry Neck--supple. No JVD. No bruits. Thyroid normal, trachea midline, no adenopathy. Heart--normal S1 and S2. No murmurs, rubs or gallops. Lungs--clear bilaterally, no respiratory distress, no accessory muscle use. Abdomen--normal bowel sounds and soft. Mild epigastric and left sided abdominal pain Extremities--no cyanosis or clubbing. No edema. Dermatologic--normal skin turgor, normal color, no abnormal lymph nodes, no rash. Neurologic--cranial nerves II through XII grossly intact. Rheumatologic--normal range of motion. Psychiatric--normal affect. Discharge Data Allergies Allergy/AdvReac Type Severity Reaction Status Date / Time bee venom protein (honey bee) Allergy Severe swelling Verified 07/14/22 16:05 of lips/tongue/throat adhesive Allergy Intermediate rash Verified 07/14/22 16:05 latex Allergy Unknown RED/IRRITAT Verified 07/14/22 16:05 ION Sulfa (Sulfonamide Allergy Unknown HIVES Verified 07/14/22 16:05 Antibiotics) Xlfwkhy-IYI-FpB Reductase AdvReac Unknown MUSCLE Verified 07/14/22 16:05 Inhibitor ACHES [Ltdrvjg-Gdd-Qvp Reductase Inhibitor] Consultations 07/14/22 17:35 ED Decision to Admit Stat 07/15/22 07:32 Consult Neurology Routine Consult Vascular Surgery Routine Ordered Studies 07/14/22 13:56 CT angio head wo/w Stat CT angio neck with con Stat 07/15/22 00:01 MR brain wo con Routine Hospital Course (1) Left hand weakness: Vilma is an 87-year-old female who presents with 2 episodes of left hand weakness concerning for TIA, symptoms improved by time of hospitalist evaluation. tPA not indicated based on improving symptoms. Left hand weakness, CVA - CTA-Head/Neck: 1. There is no hemorrhage, mass effect, or evidence of acute territorial ischemia by CT criteria. 2. 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 3. Otherwise unremarkable CT angiogram of the brain. 4. There is high-grade stenosis (greater than 75%) of the proximal right internal carotid artery. 5. Otherwise unremarkable CT angiogram of the neck. - CXR: No acute chest disease. Cardiomegaly is noted. CT-H: There is no hemorrhage, mass effect, or evidence of acute territorial ischemia by CT criteria. 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 Concern for embolic stroke. Echo did not show any evidence of PFO -> Vascular consulted for right ICA stenosis. Plan is for outpatient TCAR -However, patient would be on Plvix and ASA foe at least 5 days prior to procedure HLD - Lipid panel pending - statin intolerant in past. Would likely benefit from PCSK9 inhibitor as outpatient, would attempt to get approved as outpatient given multiple statin intolerance and concern for TIA with hyperlipidemia Hypothyroidism - TSH pending - Continue Synthroid 100mcg HTN - Continue amlodipine 5mg daily DVT PPx: SCDs, heparin SQ CODE (2) PAD (peripheral artery disease): (3) Impaired fasting glucose: (4) Arthritis, multiple joint involvement: (5) Hyperlipidemia: (6) HTN (hypertension): (7) Hypothyroidism: (8) Polyneuropathy: (9) Osteoporosis: (10) Vitamin D deficiency: Plan d/c to follow up with vascular for outpatient TCAR procedure Total Time Total Time Spent Total Time Spent (In Minutes): 35 Discharge Plan Discharge Items Patient Disposition: Home - Self-Care Reason For Visit: L ARM WEAKNESS, STROKE EVAL Discharge Diagnosis: acute cva Activity: Resume your previous activity Non-emergency contact: Surgeon Call non-emergency contact if: you have any medication questions Follow-up/Referrals: Ramón Wallace MD [Primary Care Provider] - 07/28/22 3:45 pm Eddie Sheldon MD [Physician] - (Call my office [phone] if my office has not called yet My office will need to schedule blood work for wednesday at approximately 11:00am) Diet: Regular Addtl Attending Provider Instructions: Please make appointment with your vascular surgeon BERNARD Pending Studies at Discharge: No Stand-Alone Forms: Medications to Prevent Stroke, My [facility] [email or web address], Smoking Cessation Medications and DC Order Prescriptions: New atorvastatin 40 mg Tablet 40 mg PO QAM 30 Days Qty: 30 0RF clopidogrel 75 mg Tablet 75 mg PO QAM 30 Days Qty: 30 0RF Continued levothyroxine [Levoxyl] 100 mcg tablet 100 mcg PO QAM Qty: 90 3RF aspirin 81 mg tablet,chewable 81 mg PO DAILY Qty: 30 2RF ezetimibe [Zetia] 10 mg tablet 10 mg PO DAILY Qty: 30 6RF amlodipine 5 mg tablet 5 mg PO QAM Qty: 90 3RF mupirocin 2 % ointment 1 applic topical BID Qty: 22 8RF fluticasone propionate [Flonase Allergy Relief] 50 mcg/actuation spray,suspension 1 spray intranasal BID Qty: 15.8 8RF cholecalciferol (vitamin D3) 1,000 unit capsule 1,000 units PO QAM docusate sodium [Dulcolax Stool Softener (dss)] 100 mg capsule 100 mg PO DAILY PRN (Reason: Constipation) Travatan Z 0.004 % drops 1 drops OP QPM calcium carbonate-vitamin D3 600 mg-5 mcg (200 unit) Tablet 1 tab PO DAILY omega 5-mxl-elk-fish oil [Fish Oil] 1,000 mg (120 mg-180 mg) Capsule 1 cap PO DAILY Discharge Orders: Discharge Order (Routine); Ordered 07/16/22 Ordered By: Gena Dempsey Admission Data Admit Date/Time: 07/15/22 19:35 Attending Provider: Gena Dempsey Admit Provider: Ramón Anaya Primary Care Provider: Ramón Wallace Other Providers: Ramón Anaya ; Asim Potter ; Eddie Sheldon Other Interventions: Discharge Summary Assessment (RN) Last Done: 07/16/22 13:57 Coding Level of Care Code D/C DAY MANAGEMENT >30 MINS Diagnoses Left hand weakness R29.898 PAD (peripheral artery disease) I73.9 Impaired fasting glucose R73.01 Arthritis, multiple joint involvement M12.9 Hyperlipidemia E78.5 HTN (hypertension) I10 Hypothyroidism E03.9 Hypothyroidism type: acquired Polyneuropathy G62.9 Osteoporosis M81.0 Vitamin D deficiency E55.9 Time Spent (min) 35
[2022-07-17] MEDS ORDERED: ATORVASTATIN 40 MG TAB PO SCH (09:00)
== END 2022-07-16 14:30 | disposition home or self-care (01) ==
LOC: ED 12:51 → 2W 12:51 → SUATTDRO 17:55 → 2W 20:58 → SUATTDRO 07-15 19:35

== ENCOUNTER 2022-07-23 09:54 | Inpatient (IN) ==
--- NOTE | 2022-07-17 15:07 | Anesthesiology Consultation ---
Date of Service July 17, 2022 Assessment & Plan (1) Encounter for pre-operative examination: - discharge summary 07/15/22 MN: "...2 episodes of left hand weakness concerning for TIA, symptoms improved by time of hospitalist evaluation. tPA not indicated based on improving symptoms. Left hand weakness, CVA- CTA-Head/Neck: 1. There is no hemorrhage, mass effect, or evidence of acute territorial ischemia by CT criteria. 2. 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 3. Otherwise unremarkable CT angiogram of the brain. 4. There is high- grade stenosis (greater than 75%) of the proximal right internal carotid artery. 5. Otherwise unremarkable CT angiogram of the neck- CXR: No acute chest disease. Cardiomegaly is noted. 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 Concern for embolic stroke Echo did not show any evidence of PFO...Vascular consulted for right ICA stenosis. 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 To surgeon's discretion if preop COVID testing needed. Chart Review Chart Review: Acceptable Risk for Surgery and Patient NOT seen in Pre Admission Testing History Surgery Operation Date: 07/23/22 13:50 Proposed Procedures p Right Transcarotid Artery Revascularization - Eddie Sheldon MD Height/Weight Height: 5 ft 5 in Weight: 64.41 kg Allergies Allergy/AdvReac Type Severity Reaction Status Date / Time bee venom protein (honey bee) Allergy Severe swelling Verified 07/17/22 11:08 of lips/tongue/throat adhesive Allergy Intermediate rash Verified 07/17/22 11:08 latex Allergy Intermediate RED/IRRITAT Verified 07/17/22 11:08 ION Sulfa (Sulfonamide Allergy Intermediate HIVES Verified 07/17/22 11:08 Antibiotics) Dzbvknk-USH-NiU Reductase AdvReac Intermediate MUSCLE Verified 07/17/22 11:08 Inhibitor ACHES [Agtnnxn-Mru-Hno Reductase Inhibitor] Medications Home Medications Medication Instructions Recorded Confirmed Last Taken docusate sodium 100 mg capsule 100 mg PO DAILY PRN Constipation 05/10/19 07/17/22 01/08/20 (Dulcolax Stool Softener (docusate)) travoprost 0.004 % eye drops 1 drops ophthalmic (eye) QPM 05/10/19 07/17/22 04/15/20 (Travatan Z) cholecalciferol (vitamin D3) 25 1,000 units PO QAM 08/22/19 07/17/22 04/15/20 mcg (1,000 unit) capsule levothyroxine 100 mcg tablet 100 mcg PO QAM #90 tabs 09/22/21 07/17/22 Unknown (Levoxyl) amlodipine 5 mg tablet 5 mg PO QAM #90 tabs 07/03/22 07/17/22 Unknown calcium carbonate 600 mg-vitamin 1 tab PO QAM 07/14/22 07/17/22 Unknown D3 5 mcg (200 unit) tablet omega 1-qzq-mcv-fish oil 1,000 mg 1 cap PO QAM 07/14/22 07/17/22 Unknown (120 mg-180 mg) capsule (Fish Oil) atorvastatin 40 mg tablet 40 mg PO QAM 30 days #30 tabs 07/16/22 07/17/22 Unknown clopidogrel 75 mg tablet 75 mg PO QAM 30 days #30 tabs 07/16/22 07/17/22 Unknown aspirin 81 mg chewable tablet 81 mg PO QAM 07/17/22 07/17/22 Unknown ezetimibe 10 mg tablet (Zetia) 10 mg PO QAM 07/17/22 07/17/22 Unknown fluticasone propionate 50 1 spray intranasal BID PRN Allergy 07/17/22 07/17/22 Unknown mcg/actuation nasal Symptoms spray,suspension (Flonase Allergy Relief) Past Medical History Medical History (Updated 07/17/22 @ 15:04 by Roula Terrazas PA-C) Carotid aneurysm, 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 HTN (hypertension) Hyperlipidemia Hypothyroidism On anticoagulant therapy plavix started after stroke 07/14/22 Osteoporosis PAD (peripheral artery disease) Paresthesias feet Polyneuropathy Sensorineural hearing loss of combined types, bilateral Solitary thyroid nodule 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 [facility] Past Family History Family History Aunt , Age 70 Breast cancer Colorectal cancer paternal Sister Colorectal cancer Diabetes Hyperlipidemia Environmental allergies Asthma Uncle Colorectal cancer paternal Grandmother (Paternal) Colorectal cancer Father , AGE 62 Myocardial infarction FIRST SC AGE 49 Cardiovascular disease Heart disease Mother , Age 92 Bladder cancer Grandfather (Paternal) Colorectal cancer Other No family history of adverse response to anesthesia No family history of bleeding disorder Denies family history of Ovarian cancer Prostate cancer Kidney disease Lung cancer Hypertension Stroke Past Surgical History Surgical History History of basal cell carcinoma face/back with removal History of cataract surgery bilateral History of colonoscopy History of tooth extraction wisdom teeth S/P tonsillectomy and adenoidectomy Social History Smoking Status: Never smoker Do You Dip or Chew Tobacco: No Hx Alcohol Use: Yes Alcohol type: wine alcohol intake frequency: a few times a week Hx Substance Use: No substance use type: does not use Lab Results Anesthesia Preop Results Results Anesthesia Widget: WBC 7.67 K/ul (4.8-10.8) 07/16/22 Hgb 14.0 g/dl (12.0-16.0) 07/16/22 Hct 42.1 % (34.1-44.9) 07/16/22 Plt 318 K/uL (130-400) 07/16/22 Na 140 mmol/L (136-145) 07/16/22 K 4.0 mmol/L (3.5-5.1) 07/16/22 Cl 105 mmol/L (98-107) 07/16/22 CO2 31 mmol/L (21-32) 07/16/22 BUN 14 mg/dl (6-23) 07/16/22 Creat 0.60 mg/dl (0.6-1.2) 07/16/22 Glucose Level 92 mg/dl (70-99(Fasting)) 07/16/22 PT 10.2 Seconds (9.0-12.0) 07/14/22 INR 1.0 (0.9-1.1) 07/14/22 HA1c 5.6 % (4.5-5.6) 07/15/22 SARS-CoV-2, RNA, NAAT NEGATIVE (NEGATIVE) 07/14/22 Testing Electrocardiogram Date: 07/14/22 NSR, rate 64 bpm Early repolarization Chest X-Ray Date: 07/14/22 *1view* No acute chest disease. Cardiomegaly is noted. Echocardiogram Date: 07/15/22 EF 60-65% Normal LV wall motion No PFO/ASA/ASD No significant valvular disease Other Testing Brain MRI 07/14/22 1. Punctate acute infarcts within the right frontal lobe with additional small areas of acute infarction noted within the posterior right temporal and occipital lobe. Based on the multi vascular territory distribution, a proximal thromboembolic source is considered. Echocardiogram recommended. 2. No acute intracranial hemorrhage or midline shift. 3. Involutional changes with mild chronic microvascular ischemic disease. Head and neck CTA 07/14/22 1. There is no hemorrhage, mass effect, or evidence of acute territorial ischemia by CT criteria. 2. 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 3. Otherwise unremarkable CT angiogram of the brain. 4. There is high-grade stenosis (greater than 75%) of the proximal right internal carotid artery. 5. Otherwise unremarkable CT angiogram of the neck.
--- NOTE | 2022-07-23 08:05 | History & Physical Report ---
Date of Service July 23, 2022 History of Present Illness Primary Care Provider: Ramón Wallace MD [facility], [id number] Consultation Signed with Yordan Patient:DEBBIE MOFFETT Admit Date:07/15/22 MR#:[id number] Att Phy:Gena Dempsey MD Acct ID:[id number] Cathy Phy:Ramón Wallace MD Date:1935 Fam Phy: Age:87 Location:2W Sex:F Room/Bed:W253-2 cc: ~ *NOTICE TO RECEIVING DEMOCRAT/AGENCY This information is strictly Confidential and protected under [place] law. [place] law prohibits you from making any further disclosure of this information unless further disclosure is expressly permitted by the written consent of the person to whom it pertains or is authorized by law. A general authorization for the release of medical or other information is not sufficient for this purpose. Hospital accepts no responsibility if the information is made available to any other person, INCLUDING THE PATIENT. ADDENDUM 07/16/22ddendum July 16, 2022 08:10 Consult was actually done on 07/15/22 Addendum Signed By: <Electronically signed by Eddie Sheldon MD> 07/16/22809 Addendum Cosigned By: Created: 07/16/22 Date of Consultation July 16, 2022 Assessment & Plan (1) Stenosis of right internal carotid artery: This appears to be an embolic event from a significant narrowing of her right carotid artery. Treatment of her carotid was discussed. The options are endarterectomy vs TCAR. For the TCAR she needs to be on dual antiplatelet and have a positive response to plavix testing. She also has to be on a statin pre op and for at least 4 weeks post op. She did say she had problems with statins years ago. She was willing to try statins again and go ahead with a TCAR procedure. I have discussed the risks options and benefits of the procedure with the patient. The patient understands the risks options and benefits and agrees to the procedure. We will load her with plavix and statins and plan on a TCAR next . She has to be on these meds for at least 5 days prior to the procedure. She also will need to be tested for plavix resistance early next week. History of Present Illness Reason for Consultation: Right internal carotid artery stenosis, symptomatic Attending Physician: Gena Dempsey MD History of Present Illness This is an 87-year-old female who presented to the emergency department intermittent left upper extremity weakness and heaviness beginning the previous day. This resulted in left hand weakness the day before admission and it recurred the day of admission. She claims her left hand is now back to normal. She denies any associated headache, vision loss, or change in speech. Her blood pressure was elevated at her ED visit at 161/73. A CT of the head was negative for hemorrhage or acute process. 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 A brain MRI revealed a punctate infarct within the right frontal lobe with additional smaller areas of acute infarct within the posterior right temporal and occipital lobes. Past medical history is positive for hypertension and hyperlipidemia. The patient takes daily low-dose aspirin, Zetia, and amlodipine. She has a history of intolerance to statins. Allergies Allergy/AdvReac Type Severity Reaction Status Date / Time bee venom protein (honey bee) Allergy Severe swelling Verified 07/14/22 16:05 of lips/tongue/throat adhesive Allergy Intermediate rash Verified 07/14/22 16:05 latex Allergy Unknown RED/IRRITAT Verified 07/14/22 16:05 ION Sulfa (Sulfonamide Allergy Unknown HIVES Verified 07/14/22 16:05 Antibiotics) Dniosdg-KUU-FjB Reductase AdvReac Unknown MUSCLE Verified 07/14/22 16:05 Inhibitor ACHES [Ygwijyo-Zpj-Mrc Reductase Inhibitor] Home Medications Medication Instructions Recorded Confirmed Type docusate sodium 100 mg capsule 100 mg PO DAILY PRN Constipation 05/10/19 07/14/22 History (Dulcolax Stool Softener (docusate)) travoprost 0.004 % eye drops 1 drops ophthalmic (eye) QPM 05/10/19 History (Travatan Z) cholecalciferol (vitamin D3) 25 1,000 units PO QAM 08/22/19 07/14/22 History mcg (1,000 unit) capsule levothyroxine 100 mcg tablet 100 mcg PO QAM #90 tabs 09/22/21 2 Rx (Levoxyl) aspirin 81 mg chewable tablet 81 mg PO DAILY #30 tabs 09/29/21 Rx ezetimibe 10 mg tablet (Zetia) 10 mg PO DAILY #30 tabs 02/09/2207/14 Rx fluticasone propionate 50 1 spray intranasal BID #15.8 mL 04/29/22 Rx mcg/actuation nasal spray,suspension (Flonase Allergy Relief) mupirocin 2 % topical ointment 1 applic topical BID #22 grams 04/29/22 07/14/22 Rx amlodipine 5 mg tablet 5 mg PO QAM #90 tabs 07/03/22 07/14/22 Rx calcium carbonate 600 mg-vitamin 1 tab PO DAILY 07/14/22 2 History D3 5 mcg (200 unit) tablet omega 8-cjh-yuh-fish oil 1,000 mg 1 cap PO DAILY 07/14/22 History (120 mg-180 mg) capsule (Fish Oil) Patient History Medical History Arthritis of lumbar spine Arthritis, multiple joint involvement Broken wrist LtHistory of hyperlipidemia HTN (hypertension) Hyperlipidemia Hypothyroidism Osteoarthritis Osteoporosis PAD (peripheral artery disease) Paresthesias feetPolyneuropathy Sensorineural hearing loss of combined types, bilateral Solitary thyroid nodule Vitamin D deficiency Surgical History History of basal cell carcinoma face/back with removalHistory of cataract surgery History of colonoscopy History of tooth extraction wisdom teethS/P colonoscopy S/P tonsillectomy and adenoidectomy Family History Aunt , Age 70 Breast cancer Colorectal cancer paternalSister Colorectal cancer Diabetes Hyperlipidemia Environmental allergies AsthmaUncle Colorectal cancer paternalGrandmother (Paternal) Colorectal cancerFather , AGE 62 Myocardial infarction FIRST [place] AGE 49 Cardiovascular disease Heart diseaseMother , Age 92 Bladder cancerGrandfather (Paternal) Colorectal cancerOther No family history of adverse response to anesthesia No family history of bleeding disorder Denies family history of Ovarian cancer Prostate cancer Kidney disease Lung cancer Hypertension Stroke Social History Smoking Status: Never smoker Second Hand Exposure: No; Do You Dip or Chew Tobacco: No; Tobacco Cessation Education Requested by Patient: No Hx Alcohol Use: No Hx Substance Use: No Preferred Language: [place] Citizen Communication Ability: Effective Visual Impairment: Limited Hearing Ability: Hard of Hearing 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 Beliefs That Will Affect Care: None marital status: / Current Living Situation: Alone current occupational status: retired 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 How many Children do You have: 1 Other Information That Helps Us Care for You: No Feels Safe at Home: Yes Safety Concerns: Feels Safe At This Time Childhood Exposure to Second-Hand Smoke: Yes caffeine: Yes (coffee) Dental Care, Regularly: Yes Physical Activity Frequency: 3-4 Times per Week Seatbelt Use: always Sunscreen Use: Yes Assistive Devices: Cane Assistive Devices Comment: cane prn Review of Systems Review of Systems: All systems reviewed & are unremarkable except as noted in HPI & below Physical Exam Constitutional: WD/WN, vitals as above Eyes: reactive pupils; no EOM movement deficit Respiratory: normal respiratory effort, lungs clear to auscultation Cardiovascular: RRR, no murmur, no edema Vessels: femoral pulses present and radial pulses present Extremities: normal capillary refill Gastrointestinal (Abdomen): normal bowel sounds, soft, nontender, no hepatosplenomegaly Musculoskeletal: no cyanosis or clubbing, extremities motor strength 5/5 Neurologic: CN's II-XI intact bilaterally and moves all extremities Psychiatric: Orientation: alert and oriented x 3 Results & Data ([facility]) Vital Signs (Past 12 Hours) Vital Signs Temp Pulse Resp BP Pulse Ox O2 Del Method 07/16/22 03:02 36.6 C 60 16 112/62 95 Room Air 07/15/22 22:51 36.7 C 65 16 134/58 L 96 Room Air Signed By: <Electronically signed by Eddie Sheldon MD> 07/16/22 0758 Created:07/16/22 0745 The status of this report isSigned. Draft = Not yet reviewed or approved by Medical Physician. Signed = Reviewed and approved by Medical Physician. Allergies Allergy/AdvReac Type Severity Reaction Status Date / Time bee venom protein (honey bee) Allergy Severe swelling Verified 07/17/22 11:08 of lips/tongue/throat adhesive Allergy Intermediate rash Verified 07/17/22 11:08 latex Allergy Intermediate RED/IRRITAT Verified 07/17/22 11:08 ION Sulfa (Sulfonamide Allergy Intermediate HIVES Verified 07/17/22 11:08 Antibiotics) Ziixlfw-GKW-RwU Reductase AdvReac Intermediate MUSCLE Verified 07/17/22 11:08 Inhibitor ACHES [Lamsvgf-Wbo-Gyn Reductase Inhibitor] Home Medications Medication Instructions Recorded Confirmed Type docusate sodium 100 mg capsule 100 mg PO DAILY PRN Constipation 05/10/19 07/17/22 History (Dulcolax Stool Softener (docusate)) travoprost 0.004 % eye drops 1 drops ophthalmic (eye) QPM 05/10/19 07/17/22 History (Travatan Z) cholecalciferol (vitamin D3) 25 1,000 units PO QAM 08/22/19 07/17/22 History mcg (1,000 unit) capsule levothyroxine 100 mcg tablet 100 mcg PO QAM #90 tabs 09/22/21 07/17/22 Rx (Levoxyl) amlodipine 5 mg tablet 5 mg PO QAM #90 tabs 07/03/22 07/17/22 Rx calcium carbonate 600 mg-vitamin 1 tab PO QAM 07/14/22 07/17/22 History D3 5 mcg (200 unit) tablet omega 5-iak-njl-fish oil 1,000 mg 1 cap PO QAM 07/14/22 07/17/22 History (120 mg-180 mg) capsule (Fish Oil) atorvastatin 40 mg tablet 40 mg PO QAM 30 days #30 tabs 07/16/22 07/17/22 Rx clopidogrel 75 mg tablet 75 mg PO QAM 30 days #30 tabs 07/16/22 07/17/22 Rx aspirin 81 mg chewable tablet 81 mg PO QAM 07/17/22 07/17/22 History ezetimibe 10 mg tablet (Zetia) 10 mg PO QAM 07/17/22 07/17/22 History fluticasone propionate 50 1 spray intranasal BID PRN Allergy 07/17/22 07/17/22 History mcg/actuation nasal Symptoms spray,suspension (Flonase Allergy Relief) Past Med/Surg History Medical History (Updated 07/17/22 @ 15:04 by Roula Terrazas PA-C) Carotid aneurysm, 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 HTN (hypertension) Hyperlipidemia Hypothyroidism On anticoagulant therapy plavix started after stroke 07/14/22 Osteoporosis PAD (peripheral artery disease) Paresthesias feet Polyneuropathy Sensorineural hearing loss of combined types, bilateral Solitary thyroid nodule 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 [facility] Surgical History History of basal cell carcinoma face/back with removal History of cataract surgery bilateral History of colonoscopy History of tooth extraction wisdom teeth S/P tonsillectomy and adenoidectomy Family History Aunt , Age 70 Breast cancer Colorectal cancer paternal Sister Colorectal cancer Diabetes Hyperlipidemia Environmental allergies Asthma Uncle Colorectal cancer paternal Grandmother (Paternal) Colorectal cancer Father , AGE 62 Myocardial infarction FIRST [place] AGE 49 Cardiovascular disease Heart disease Mother , Age 92 Bladder cancer Grandfather (Paternal) Colorectal cancer Other No family history of adverse response to anesthesia No family history of bleeding disorder Denies family history of Ovarian cancer Prostate cancer Kidney disease Lung cancer Hypertension Stroke Social History Smoking Status: Never smoker Second Hand Exposure: No; Do You Dip or Chew Tobacco: No; Tobacco Cessation Education Requested by Patient: No Hx Alcohol Use: Yes Alcohol type: wine Alcohol Intake Frequency: 2-3 x/Week Hx Substance Use: No Preferred Language: [place] Citizen Communication Ability: Effective Visual Impairment: Limited Hearing Ability: Hard of Hearing 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
[2022-07-23] MEDS ORDERED: ALBUMIN HUMAN 5% 12.5 GM/250 ML VIAL IV ONE (10:43)
[2022-07-23] MEDS ORDERED: HEPARIN SOD (PORCINE) 1000 UNIT/ML ONE (10:52)
[2022-07-23] MEDS ORDERED: NITROGLYCERIN/D5W 100 MCG/ML BTL ONE (10:52)
[2022-07-23] MEDS ORDERED: PHENYLEPHRINE HCL 10 MG/ML VIAL ONE (10:52)
[2022-07-23] MEDS ORDERED: ePHEDrine sulfate 50 MG/ML AMP IV PRN (11:05)
[2022-07-23] MEDS ORDERED: MEPERIDINE HCL 25 MG/ML CARP/VIAL IV PRN (11:05)
[2022-07-23] MEDS ORDERED: ROCURONIUM BROMIDE 10 MG/ML 5 ML VIAL IV ONE (11:05)
[2022-07-23] MEDS ORDERED: fentaNYL citrate 100 MCG/2 ML VIAL ONE (11:05)
[2022-07-23] MEDS ORDERED: ATROPINE SULFATE 0.1 MG/ML 10ML SYR IV PRN (11:05)
[2022-07-23] MEDS ORDERED: NEOSTIGMINE METHYLSULFATE 1 MG/ML 10ML VIAL ONE (11:05)
[2022-07-23] MEDS ORDERED: DEXAMETHASONE SOD INJ 4 MG/ML VIAL ONE (11:05)
[2022-07-23] MEDS ORDERED: HYDROmorphone INJ 1 MG/ML SYRINGE IV PRN (11:05)
[2022-07-23] MEDS ORDERED: PHENYLEPHRINE 100MCG/ML 5ML SYR IV PRN (11:05)
[2022-07-23] MEDS ORDERED: LARYING-O-JET KIT (LTA) ONE (11:05)
[2022-07-23] MEDS ORDERED: ONDANSETRON INJ 2 MG/ML 2 ML VIAL ONE ×2 (11:05→14:04)
[2022-07-23] MEDS ORDERED: PROPOFOL IV EMULSION 10 MG/ML 20 ML VIAL IV ONE (11:05)
[2022-07-23] MEDS ORDERED: GLYCOPYRROLATE 0.2 MG/ML VIAL ONE (11:05)
[2022-07-23] MEDS ORDERED: fentaNYL citrate 100 MCG/2 ML VIAL IV PRN (11:05)
[2022-07-23] MEDS ORDERED: ONDANSETRON INJ 2 MG/ML 2 ML VIAL IV PRN (11:05)
[2022-07-23] MEDS ORDERED: LABETALOL HCL IV 5 MG/ML 20ML IV PRN (11:05)
[2022-07-23] MEDS ORDERED: GELATIN SPONGE SZ 100 ONE (11:53)
[2022-07-23] MEDS ORDERED: THROMBIN FOR SOLN 20000 UNIT KIT ONE (11:53)
--- NOTE | 2022-07-23 12:42 | History & Physical Bridge Note ---
Date of Service July 23, 2022 History & Physical Bridge Note I have examined the patient, reviewed the History & Physical and in the interval since the performance of the History & Physical I have noted the following changes of clinical significance: no changes noted
[2022-07-23] MEDS ORDERED: SURGICEL ABSORB HEMOSTAT 2IN X 14IN TOP ONE (13:39)
[2022-07-23] MEDS ORDERED: VISIPAQUE IV PRN (13:42)
[2022-07-23] MEDS ORDERED: ePHEDrine sulfate 50 MG/ML SYR ONE (14:03)
[2022-07-23] MEDS ORDERED: PROTAMINE SULFATE 10 MG/ML 5 ML VIAL ONE (14:03)
[2022-07-23] MEDS ORDERED: SUGAMMADEX SODIUM 200 MG/2 ML VIAL IV ONE (14:06)
--- NOTE | 2022-07-23 14:36 | Procedure Note ---
Angiogram Post Procedure Fluoroscopy Time (minutes): 2.1 Radiation (mGy): 22 Contrast: 28 Post Operative Report Pre & Post Diagnosis Operation Date: 07/23/22 12:00 Pre-Op Diagnosis: Right Internal Carotid Artery Stenosis with transichemic attack Post-Op Diagnosis: Right Internal Carotid Artery Stenosis with transichemic attack I identified the patient and participated in the time-out.: Yes Procedure Operation Date: 07/23/22 12:00 Actual Procedures p Right Transcarotid Artery Revascularization(Right) - Eddie Sheldon MD Surgeon Eddie Sheldon MD Director Of Strategic Initiatives none Estimated Blood Loss 20 Findings Consistent with Post-Op Diagnosis Specimens none Anesthesia Type General Complications none Disposition Accompanied Patient To Recovery: No Disposition: Recovery Room Indications This is a 7-year-old female who was found to have severe stenosis of her right internal carotid artery when she presented with left hand paralysis which was intermittent. She had 2 episodes of her left hand going motionless, both times recovering. TCAR procedure was recommended. I have discussed the risks options and benefits of the procedure with the patient. The patient understands the risks options and benefits and agrees to the procedure. Description of Procedure The patient was taken to the operating room and placed in supine position. After general anesthesia was accomplished the groins and right side of the neck and chest were prepped and draped in a sterile manner. Timeout was performed and the patient was identified. A transverse incision was made just above the clavicle between the heads of the sternocleidomastoid. This was carried down to where the common carotid artery was identified. It was isolated. It was given 7000units of heparin at that time. Ultrasound was then used to localize the left common femoral vein. The vein was patent and compressed easily. Under ultrasound guidance the left common femoral vein was punctured and the venous sheath was inserted. This was aspirated and flushed with heparinized saline. An ACT at that time was greater than 250. Using micropuncture technique the common carotid artery was punctured. The micro sheath was inserted to 3 cm. Injection was then done showing the bifurcation. There was a significant lesion seen at the origin of the internal carotid artery on the right side. We then inserted the micro-wire into the external carotid artery. The micro sheath was then advanced into the external carotid. The dilator was removed. The J-wire was inserted and the micro sheath removed. The TCAR sheath was inserted. Once it was in place and held against the artery it was sutured to the chest wall and the incision edge. We then flushed the tubing appropriately. The venous return to was clamped onto the TCAR sheath. It was flushed through and then attached to the venous inflow sheath in the left groin. T sheath was checked for flow. We then inserted a 5 x 3 balloon backloaded on the wire. The wire was passed through the lesion into the petrous portion of the internal carotid. The 5 balloon was then advanced to the lesion. Lesion was then predilated with the 5 mm balloon. The balloon was removed. We then inserted the 10 x 30 stent. This was deployed across the lesion without difficulty. The catheter was removed. The carotid was allowed to go 2 minutes with flow reversal. Completion angiogram was done at that time which showed no residual stenosis. Again after the angio was done and the wire was removed we allowed 2 minutes of flow reversal to occur. A that point the common carotid artery was unclamped. The venous return tubing was clamped and removed from the TCAR sheath. The blood was allowed to flow back into the venous system. Once this was completed the sheath was pulled from the groin and pressure was applied. The TCAR sheath was then removed and the 5-0 Prolene suture securely tied. Hemostasis was noted of the puncture site. Wound was irrigated with Ancef solution. Adequate hemostasis was obtained of the wound. Once this was noted the wound was closed in usual fashion using a 3-0 Vicryl suture for the subcutaneous layer and a 4-0 subcuticular Vicryl suture for the skin edges. Dermabond was used for dressing.The patient left the operation room in satisfactory condition and tolerated the procedure well. All needle and sponge counts were correct at the end of the procedure. I attest to the content of the Intraoperative Record and any orders documented therein. Any exceptions are noted below.
[2022-07-23] MEDS ORDERED: FLUTICASONE PROPIONATE NA SPR 16 GM BTL PRN (15:37)
[2022-07-23] MEDS ORDERED: LACTATED RINGER'S 1,000 ML IV SCH (15:37)
[2022-07-23] MEDS ORDERED: DOCUSATE SODIUM 100 MG CAP PO PRN (15:37)
[2022-07-23] MEDS ORDERED: oxyCODONE/ACETAMINOPHEN 5mg/325mg TAB PO PRN (15:37)
--- NOTE | 2022-07-23 15:43 | Anesthesiology Progress Note ---
Date of Service July 23, 2022 Anesthesia Post Procedure Vital Signs Vital Signs: Temp Pulse Pulse Pulse Resp BP BP 07/23/22 15:35 80 18 138/84 07/23/22 14:55 90 23 138/62 07/23/22 14:45 89 19 143/92 H 07/23/22 14:36 36.3 C L 94 H 16 148/55 H 07/23/22 10:32 36.4 C L 83 16 BP Pulse Ox O2 Del Method O2 Flow Rate 07/23/22 15:35 93 Room Air 07/23/22 14:55 140/47 L 97 Oxymask 1 07/23/22 14:45 148/55 H 96 Oxymask 3 07/23/22 14:36 145/64 H 99 Oxymask 5 07/23/22 10:32 168/71 H 94 Room Air Transfer of Care Handoff Completed per policy Notes Mental Status: alert / awake / arousable and participated in evaluation Patient Amnestic to Procedure: Yes Nausea / Vomiting: adequately controlled Pain: adequately controlled Airway Patency, RR, SpO2: stable & adequate BP & HR: stable & adequate Hydration State: stable & adequate Anesthetic Complications: no major complications apparent and Pt Satisfied with anesthetic care
--- NOTE | 2022-07-23 19:18 | Critical Care Consultation ---
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 Vascular surgery primary. Neuro - WILBER stenosis 75%, s/p Right CEA (07/23), History of CVA - right frontal lobe 07/16 [facility] ICU: NEGATIVE - BP goal 100-180, neurological exams - neurologically intact with no phonation or swallowing difficulties, sensation and facial movements are intact - Continue Zetia - ASA/Plavix - Incision with Dermabond closure- intact no hematoma Cardiac - HTN, HLD, PAD As above no acute ECG changes - asa/plavix, zetia, atorvastatin Respiratory - Chronic Rhinitis - No acute needs, back to room air following extubation from CEA surgery GI - No acute needs tolerating diet - glucose goal <180 - Follow RENAL/LYTES - no acute needs replete lytes as needed - no acute needs ENDO - Hyperglycemia without the dx of DM, Hypothyroidism as above Continue synthroid HEME - no acute needs ID - no acute needs LINES/IV ACCESS - PIV Continue use of these lines DVT PROPHYLAXIS - SCD, Plavix, ASA, Heparin sub q DISPO ICU I have spent 35 minutes of Critical Care time in direct care of the patient, reviewing chart, records, previous imaging and examining the patient. History of Present Illness Reason for Consultation: S/P WILBER CEA Requesting Physician: Dr. Sheldon Attending Physician: Eddie Sheldon MD History of Present Illness 87 YOF with history of CVA in 07/16 and during this evaluation was noted to have high grad stenosis of her WILBER. Her CVA was right frontal with additional smaller areas of ischemia to right temporal and occipital lobes. She underwent right CEA today by Dr. Sheldon. Patient is awake in her ICU room, tolerating diet, on room air, and without neurological deficits. She is in the ICU for BP monitoring and neurological examinations. Allergies Allergy/AdvReac Type Severity Reaction Status Date / Time bee venom protein (honey bee) Allergy Severe swelling Verified 07/23/22 10:25 of lips/tongue/throat adhesive Allergy Intermediate rash Verified 07/23/22 10:25 latex Allergy Intermediate RED/IRRITAT Verified 07/23/22 10:25 ION Sulfa (Sulfonamide Allergy Intermediate HIVES Verified 07/23/22 10:25 Antibiotics) Zosergi-JAI-JhR Reductase AdvReac Intermediate MUSCLE Verified 07/23/22 10:25 Inhibitor ACHES [Xecpwln-Afe-Xjl Reductase Inhibitor] Home Medications Medication Instructions Recorded Confirmed Type docusate sodium 100 mg capsule 100 mg PO DAILY PRN Constipation 05/10/19 0 07/23/22 History (Dulcolax Stool Softener (docusate)) travoprost 0.004 % eye drops 1 drops ophthalmic (eye) QPM 05/10/19 07/23/22 History (Travatan Z) cholecalciferol (vitamin D3) 25 1,000 units PO QAM 08/22/19 07/23/22 History mcg (1,000 unit) capsule levothyroxine 100 mcg tablet 100 mcg PO QAM #90 tabs 09/22/21 07/23/22 Rx (Levoxyl) amlodipine 5 mg tablet 5 mg PO QAM #90 tabs 07/03/22 07/23/22 Rx calcium carbonate 600 mg-vitamin 1 tab PO QAM 07/14/22 07/23/22 History D3 5 mcg (200 unit) tablet omega 6-ohi-uqn-fish oil 1,000 mg 1 cap PO QAM 07/14/22 07/23/22 History (120 mg-180 mg) capsule (Fish Oil) atorvastatin 40 mg tablet 40 mg PO QAM 30 days #30 tabs 07/16/22 07/23/22 Rx clopidogrel 75 mg tablet 75 mg PO QAM 30 days #30 tabs 07/16/22 07/23/22 Rx aspirin 81 mg chewable tablet 81 mg PO QAM 07/17/22 07/23/22 History ezetimibe 10 mg tablet (Zetia) 10 mg PO QAM 07/17/22 07/23/22 History fluticasone propionate 50 1 spray intranasal BID PRN Allergy 07/17/22 07/23/22 History mcg/actuation nasal Symptoms spray,suspension (Flonase Allergy Relief) Patient History Medical History Carotid aneurysm, 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 HTN (hypertension) Hyperlipidemia Hypothyroidism On anticoagulant therapy plavix started after stroke 07/14/22 Osteoporosis PAD (peripheral artery disease) Paresthesias feet Polyneuropathy Sensorineural hearing loss of combined types, bilateral Solitary thyroid nodule 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 [facility] Surgical History History of basal cell carcinoma face/back with removal History of cataract surgery bilateral History of colonoscopy History of tooth extraction wisdom teeth S/P tonsillectomy and adenoidectomy Family History Aunt , Age 70 Breast cancer Colorectal cancer paternal Sister Colorectal cancer Diabetes Hyperlipidemia Environmental allergies Asthma Uncle Colorectal cancer paternal Grandmother (Paternal) Colorectal cancer Father , AGE 62 Myocardial infarction FIRST MT AGE 49 Cardiovascular disease Heart disease Mother , Age 92 Bladder cancer Grandfather (Paternal) Colorectal cancer Other No family history of adverse response to anesthesia No family history of bleeding disorder Denies family history of Ovarian cancer Prostate cancer Kidney disease Lung cancer Hypertension Stroke Social History Smoking Status: Never smoker Second Hand Exposure: No; Do You Dip or Chew Tobacco: No; Tobacco Cessation Education Requested by Patient: No Hx Alcohol Use: Yes Alcohol type: wine Alcohol Intake Frequency: 2-3 x/Week Hx Substance Use: No Preferred Language: Albanian Communication Ability: Effective Visual Impairment: Limited Hearing Ability: Hard of Hearing Wire Chief Required: No Beliefs That Will Affect Care: None marital status: / Current Living Situation: Alone current occupational status: retired 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 Review of Systems Review of Systems: REVIEW OF SYSTEMS: Constitutional: No fever, sweats or chills Eyes: (+) "visual waves" that she has had, No diplopia, no worsening or blurred vision ENT: (+) scratchy throat, normal hearing, no trouble swallowing Respiratory: No cough, sputum, dyspnea at rest or on exertion Cardiovascular: No chest pain, tightness or palpitations Abdomen: No pain, nausea, vomiting, diarrhea or constipation Musculoskeletal: No joint pain, calf pain, swelling Neurologic: No weakness, numbness/tingling, or balance problems Psychiatric: No anxiety or depression Skin: No rash or itch Physical Exam Physical Exam: PHYSICAL EXAM: General: awake, alert, no apparent distress Head: Normocephalic, atraumatic ENT: PERRL, EOMI, no pharyngeal exudate, mucous membranes moist Neuro: AAO x 3, speech clear and appropriate, strength intact bilaterally 5/5, sensation intact and equal all extremities and dermatomes, no pronator drift Chest: equal rise and fall of the chest, no accessory muscle use, no heaves or thrills, Clear to auscultation, on room air, Cardiac: Regular rate and rhythm, telemetry reviewed, skin warm dry, cap refill <3 seconds, peripheral pulses +2 no JVD, no murmur, no JVD, no edema GI: NABS x 4 quadrants, soft, nontender to palpation, no rebound, guarding or tenderness : Spontaneously voiding, no pain, no CVA tenderness, Extremities: Normal inspection, no peripheral edema or erythema, calfs nontender to palpation Psych: Normal mood and affect Skin: right neck incision with Dermabond closure, no hematoma, no drainage Results & Data Results & Data ([facility]) Vital Signs (Past 12 Hours) Vital Signs Temp Pulse Pulse Pulse Resp BP BP 07/23/22 18:00 81 12 116/57 L 07/23/22 17:01 80 16 129/65 07/23/22 16:00 77 16 141/57 H 07/23/22 16:00 81 143/48 H 07/23/22 16:00 82 07/23/22 15:35 80 18 138/84 07/23/22 14:55 90 23 138/62 07/23/22 14:45 89 19 143/92 H 07/23/22 14:36 36.3 C L 94 H 16 148/55 H 07/23/22 10:32 36.4 C L 83 16 BP Pulse Ox O2 Del Method O2 Flow Rate 07/23/22 18:00 94 07/23/22 17:01 92 07/23/22 16:00 95 07/23/22 16:00 07/23/22 16:00 07/23/22 15:35 93 Room Air 07/23/22 14:55 140/47 L 97 Oxymask 1 07/23/22 14:45 148/55 H 96 Oxymask 3 07/23/22 14:36 145/64 H 99 Oxymask 5 07/23/22 10:32 168/71 H 94 Room Air Laboratory Results Abnormal lab results 07/23/22 Range/Units 13:43 Activ Coag Time Kaolin 277 H (94-140) SECONDS Medications Administered Cefazolin Sodium (Ancef 1000mg) 1,000 mg in 7.5 mls @ 2.5 mls/min IV Q8H [facility]; Protocol Stop: 07/24/22 05:02 Last Admin: 07/23/22 20:47 Dose: 2.5 mls/min Documented By: FIDEL Iodixanol (Visipaque) 100 ml IV UD PRN PRN Reason: radiology Stop: 07/27/22 13:41 Last Admin: 07/23/22 14:04 Dose: 28 ml Documented By: ARIA Travoprost (Travoprost Z 0.004% Oph Soln 2.5 Ml Btl) 1 drops OP QPM [facility] Stop: 08/22/22 20:59 Last Admin: 07/23/22 20:48 Dose: 1 drops Documented By: FIDEL Discontinued Medications Cefazolin Sodium (Cefazolin 1,000 Mg/7.5 Ml Iv Push) Confirm Administered Dose 1,000 mg IV .STK-MED ONE Stop: 07/23/22 12:57 Last Admin: 07/23/22 12:58 Dose: 1,000 mg Documented By: HUGH Gelatin (Gelatin Sponge Sz 100) Confirm Administered Dose 1 each .ROUTE .STK-MED ONE Stop: 07/23/22 11:54 Last Admin: 07/23/22 14:06 Dose: Not Given Documented By: PIYUSH Heparin Sodium/Sodium Chloride (Heparin In Nss Infusion 1000 Unit/500 Ml (2 U/Ml) Bag) Confirm Administered Dose 2,000 units IV .STK-MED ONE Stop: 07/23/22 11:44 Last Admin: 07/23/22 14:05 Dose: 200 units Documented By: ARIA Lactated Ringer's (Lr) 1,000 mls @ 125 mls/hr IV .Q8H ROLY Stop: 08/22/22 15:36 Last Admin: 07/23/22 17:30 Dose: Not Given Documented By: FIDEL Miscellaneous (Surgicel Absorb Hemostat 2in X 14in) 1 each TOP ONCE ONE Stop: 07/23/22 13:40 Last Admin: 07/23/22 14:09 Dose: 1 each Documented By: ARIA Thrombin (Thrombin For Soln [id number] Unit Kit) Confirm Administered Dose 20,000 units .ROUTE .STK-MED ONE Stop: 07/23/22 11:54 Last Admin: 07/23/22 14:06 Dose: Not Given Documented By: PIYUSH Coding Level of Care Code 76200 Inpt Consult Level 4 Diagnoses Impaired fasting glucose R73.01 Stenosis of right internal carotid artery I65.21 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
[2022-07-23] MEDS: ceFAZolin 1000MG 1,000 MG/7.5 ML SYR IV SCH (20:47)
[2022-07-23] MEDS ORDERED: TRAVOPROST Z 0.004% OPH SOLN 2.5 ML BTL OP SCH (21:00)
[2022-07-24] MEDS: ceFAZolin 1000MG 1,000 MG/7.5 ML SYR IV SCH (05:29)
[2022-07-24] MEDS ORDERED: LEVOTHYROXINE SODIUM 100 MCG TABLET PO SCH (09:00)
[2022-07-24] MEDS ORDERED: amLODIPine BESYLATE 5 MG TAB PO SCH (09:00)
[2022-07-24] MEDS ORDERED: CALCIUM 600MG + VIT D 400 IU TAB PO SCH (09:00)
[2022-07-24] MEDS ORDERED: ATORVASTATIN 40 MG TAB PO SCH (09:00)
[2022-07-24] MEDS ORDERED: ASPIRIN 81 MG CHEW PO SCH (09:00)
[2022-07-24] MEDS ORDERED: CLOPIDOGREL BISULFATE 75 MG TAB PO SCH (09:00)
[2022-07-24] MEDS ORDERED: CHOLECALCIFEROL 1,000 UNITS 25 MCG TAB PO SCH (09:00)
[2022-07-24] MEDS ORDERED: EZETIMIBE 10 MG TABLET PO SCH (09:00)
[2022-07-24] MEDS ORDERED: OMEGA-3 (PURIFIED FISH OIL) 1 GM CAP PO SCH (09:00)
--- NOTE | 2022-07-24 12:35 | Surgery Progress Note ---
Date of Service July 24, 2022 Assessment & Plan (1) Stenosis of right internal carotid artery: Plan: Pt is POD #1 after TCAR procedure. Doing well overall. Likely discharge home today if she takes PO well and ambulates. Admission and Anticipated Discharge Date Admission Date: July 23, 2022 Subjective 87 yo f POD #1 after R sided TCAR procedure, seen in f/u today. Pt states overall feeling well. No new concerns or complaints. Review of Systems Review of Systems: All systems reviewed & are unremarkable except as noted in HPI & below Physical Exam Constitutional: WD/WN, vitals as above Neck: trachea midline R neck incision C/D/I, mild local edema, tenderness, ecchymosis. No hematoma Respiratory: normal respiratory effort; no respiratory distress Auscultation: lungs clear to auscultation bilaterally and + diminished lung sounds Cardiovascular: Rate/Rhythm: regular rate and regular rhythm Vessels: posterior tibial pulses present, dorsalis pedis pulses present and radial pulses present; + abnormal peripheral pulses Extremities: normal capillary refill Gastrointestinal (Abdomen): Inspection/Auscultation: abdomen normal to inspection and normal bowel sounds Percussion/Palpation: abdomen soft; abdomen nontender Musculoskeletal: no cyanosis or clubbing, extremities motor strength 5/5 Skin: no rashes, warm and dry + incision (R neck C/D/I. L femoral vein puncture C/D/I) Neurologic: moves all extremities and awake; no focal motor deficits and not confused Psychiatric: A+Ox3, euthymic affect Results & Data ([facility]) Vital Signs (Past 12 Hours) Vital Signs Temp Pulse Resp BP Pulse Ox O2 Del Method O2 Flow Rate 07/24/22 11:00 58 L 23 95 Room Air 07/24/22 11:00 108/44 L 07/24/22 10:30 92/53 L 07/24/22 10:30 61 20 95 07/24/22 10:00 67 19 93 07/24/22 10:00 98/49 L 07/24/22 09:00 68 15 96 07/24/22 08:01 103/46 L 07/24/22 08:01 76 18 92 Room Air 07/24/22 08:00 75 16 94 07/24/22 07:00 60 12 91 07/24/22 07:00 102/43 L 07/24/22 08:00 36.6 C 07/24/22 07:29 Room Air 07/24/22 06:23 106/44 L 95 Nasal Cannula 2 07/24/22 06:23 60 14 07/24/22 06:20 61 24 07/24/22 06:13 58 L 17 07/24/22 06:10 63 15 91 07/24/22 06:00 59 L 17 90 07/24/22 05:00 59 L 14 94 07/24/22 05:00 105/44 L 07/24/22 04:00 61 15 95 07/24/22 04:00 107/46 L 07/24/22 03:00 63 13 92 07/24/22 03:00 99/41 L 07/24/22 04:00 67 119/47 L 07/24/22 02:00 67 11 L 119/47 L 92 07/24/22 01:00 64 12 94 07/24/22 01:00 108/47 L
--- NOTE | 2022-07-29 08:20 | Discharge Summary ---
Date of Service July 29, 2022 Admission HPI Per Admitting Provider [facility], [id number] Consultation Signed with Yordan Patient:DEBBIE MOFFETT Admit Date:07/15/22 MR#:[id number] Att Phy:Gena Dempsey MD Acct ID:[id number] Cathy Phy:Ramón Wallace MD Date:1935 Fam Phy: Age:87 Location:2W Sex:F Room/Bed:[facility] cc: ~ *NOTICE TO RECEIVING REPUBLICAN/AGENCY This information is strictly Confidential and protected under [place] law. [place] law prohibits you from making any further disclosure of this information unless further disclosure is expressly permitted by the written consent of the person to whom it pertains or is authorized by law. A general authorization for the release of medical or other information is not sufficient for this purpose. Hospital accepts no responsibility if the information is made available to any other person, INCLUDING THE PATIENT. ADDENDUM 07/16/22ddendum July 16, 2022 08:10 Consult was actually done on 07/15/22 Addendum Signed By: <Electronically signed by Eddie Sheldon MD> 07/16/22809 Addendum Cosigned By: Created: 07/16/22 Date of Consultation July 16, 2022 Assessment & Plan (1) Stenosis of right internal carotid artery: This appears to be an embolic event from a significant narrowing of her right carotid artery. Treatment of her carotid was discussed. The options are endarterectomy vs TCAR. For the TCAR she needs to be on dual antiplatelet and have a positive response to plavix testing. She also has to be on a statin pre op and for at least 4 weeks post op. She did say she had problems with statins years ago. She was willing to try statins again and go ahead with a TCAR procedure. I have discussed the risks options and benefits of the procedure with the patient. The patient understands the risks options and benefits and agrees to the procedure. We will load her with plavix and statins and plan on a TCAR next . She has to be on these meds for at least 5 days prior to the procedure. She also will need to be tested for plavix resistance early next week. History of Present Illness Reason for Consultation: Right internal carotid artery stenosis, symptomatic Attending Physician: Gena Dempsey MD History of Present Illness This is an 87-year-old female who presented to the emergency department intermittent left upper extremity weakness and heaviness beginning the previous day. This resulted in left hand weakness the day before admission and it recurred the day of admission. She claims her left hand is now back to normal. She denies any associated headache, vision loss, or change in speech. Her blood pressure was elevated at her ED visit at 161/73. A CT of the head was negative for hemorrhage or acute process. 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 A brain MRI revealed a punctate infarct within the right frontal lobe with additional smaller areas of acute infarct within the posterior right temporal and occipital lobes. Past medical history is positive for hypertension and hyperlipidemia. The patient takes daily low-dose aspirin, Zetia, and amlodipine. She has a history of intolerance to statins. Allergies Allergy/AdvReac Type Severity Reaction Status Date / Time bee venom protein (honey bee) Allergy Severe swelling Verified 07/14/22 16:05 of lips/tongue/throat adhesive Allergy Intermediate rash Verified 07/14/22 16:05 latex Allergy Unknown RED/IRRITAT Verified 07/14/22 16:05 ION Sulfa (Sulfonamide Allergy Unknown HIVES Verified 07/14/22 16:05 Antibiotics) B Brkbuvo-SJX-FzI Reductase AdvReac Unknown MUSCLE Verified 07/14/22 16:05 Inhibitor ACHES [Dhgstfh-Axi-Gye Reductase Inhibitor] Home Medications Medication Instructions Recorded Confirmed Type docusate sodium 100 mg capsule 100 mg PO DAILY PRN Constipation 05/10/19 07/14/22 History (Dulcolax Stool Softener (docusate)) travoprost 0.004 % eye drops 1 drops ophthalmic (eye) QPM 05/10/19 History (Travatan Z) cholecalciferol (vitamin D3) 25 1,000 units PO QAM 08/22/19 07/14/22 History mcg (1,000 unit) capsule levothyroxine 100 mcg tablet 100 mcg PO QAM #90 tabs 11/29/21 09/20/2 2 Rx (Levoxyl) aspirin 81 mg chewable tablet 81 mg PO DAILY #30 tabs 09/29/21 Rx ezetimibe 10 mg tablet (Zetia) 10 mg PO DAILY #30 tabs 02/09/2207/14 Rx fluticasone propionate 50 1 spray intranasal BID #15.8 mL 04/29/22 Rx mcg/actuation nasal spray,suspension (Flonase Allergy Relief) mupirocin 2 % topical ointment 1 applic topical BID #22 grams 04/29/22 07/14/22 Rx amlodipine 5 mg tablet 5 mg PO QAM #90 tabs 07/03/22 07/14/22 Rx calcium carbonate 600 mg-vitamin 1 tab PO DAILY 07/14/22 2 History D3 5 mcg (200 unit) tablet omega 3-zvf-ykn-fish oil 1,000 mg 1 cap PO DAILY 07/14/22 History (120 mg-180 mg) capsule (Fish Oil) Patient History Medical History Arthritis of lumbar spine Arthritis, multiple joint involvement Broken wrist LtHistory of hyperlipidemia HTN (hypertension) Hyperlipidemia Hypothyroidism Osteoarthritis Osteoporosis PAD (peripheral artery disease) Paresthesias feetPolyneuropathy Sensorineural hearing loss of combined types, bilateral Solitary thyroid nodule Vitamin D deficiency Surgical History History of basal cell carcinoma face/back with removalHistory of cataract surgery History of colonoscopy History of tooth extraction wisdom teethS/P colonoscopy S/P tonsillectomy and adenoidectomy Family History Aunt , Age 70 Breast cancer Colorectal cancer paternalSister Colorectal cancer Diabetes Hyperlipidemia Environmental allergies AsthmaUncle Colorectal cancer paternalGrandmother (Paternal) Colorectal cancerFather , AGE 62 Myocardial infarction FIRST ND AGE 49 Cardiovascular disease Heart diseaseMother , Age 92 Bladder cancerGrandfather (Paternal) Colorectal cancerOther No family history of adverse response to anesthesia No family history of bleeding disorder Denies family history of Ovarian cancer Prostate cancer Kidney disease Lung cancer Hypertension Stroke Social History Smoking Status: Never smoker Second Hand Exposure: No; Do You Dip or Chew Tobacco: No; Tobacco Cessation Education Requested by Patient: No Hx Alcohol Use: No Hx Substance Use: No Preferred Language: French Communication Ability: Effective Visual Impairment: Limited Hearing Ability: Hard of Hearing Rack Pusher Required: No Beliefs That Will Affect Care: None marital status: / Current Living Situation: Alone current occupational status: retired 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 How many Children do You have: 1 Other Information That Helps Us Care for You: No Feels Safe at Home: Yes Safety Concerns: Feels Safe At This Time Childhood Exposure to Second-Hand Smoke: Yes caffeine: Yes (coffee) Dental Care, Regularly: Yes Physical Activity Frequency: 3-4 Times per Week Seatbelt Use: always Sunscreen Use: Yes Assistive Devices: Cane Assistive Devices Comment: cane prn Review of Systems Review of Systems: All systems reviewed & are unremarkable except as noted in HPI & below Physical Exam Constitutional: WD/WN, vitals as above Eyes: reactive pupils; no EOM movement deficit Respiratory: normal respiratory effort, lungs clear to auscultation Cardiovascular: RRR, no murmur, no edema Vessels: femoral pulses present and radial pulses present Extremities: normal capillary refill Gastrointestinal (Abdomen): normal bowel sounds, soft, nontender, no hepatosplenomegaly Musculoskeletal: no cyanosis or clubbing, extremities motor strength 5/5 Neurologic: CN's II-XI intact bilaterally and moves all extremities Psychiatric: Orientation: alert and oriented x 3 Results & Data ([facility]) Vital Signs (Past 12 Hours) Vital Signs Temp Pulse Resp BP Pulse Ox O2 Del Method 07/16/22 03:02 36.6 C 60 16 112/62 95 Room Air 07/15/22 22:51 36.7 C 65 16 134/58 L 96 Room Air Signed By: <Electronically signed by Eddie Sheldon MD> 07/16/22 0758 Created:07/16/22 0745 The status of this report isSigned. Draft = Not yet reviewed or approved by Medical Physician. Signed = Reviewed and approved by Medical Physician. Admission Exam Per Admitting Provider Constitutional: WD/WN, vitals as above Eyes: reactive pupils; no EOM movement deficit Respiratory: normal respiratory effort, lungs clear to auscultation Cardiovascular: RRR, no murmur, no edema Vessels: femoral pulses present and radial pulses present Extremities: normal capillary refill Gastrointestinal (Abdomen): normal bowel sounds, soft, nontender, no hepatosplenomegaly Musculoskeletal: no cyanosis or clubbing, extremities motor strength 5/5 Neurologic: CN's II-XI intact bilaterally and moves all extremities Psychiatric: Orientation: alert and oriented x 3 Principal Diagnosis 1. s/p Right Transcarotid Artery Revascularization 2. Severe R ICA stenosis with CVA Discharge Exam Constitutional WD/WN, vitals as above Neck trachea midline Respiratory normal respiratory effort; no respiratory distress Auscultation: lungs clear to auscultation bilaterally and + diminished lung sounds Cardiovascular Rate/Rhythm: regular rate and regular rhythm Vessels: posterior tibial pulses present, dorsalis pedis pulses present and radial pulses present; + abnormal peripheral pulses Extremities: normal capillary refill Gastrointestinal (Abdomen) Inspection/Auscultation: abdomen normal to inspection and normal bowel sounds Percussion/Palpation: abdomen soft; abdomen nontender Musculoskeletal no cyanosis or clubbing, extremities motor strength 5/5 Skin no rashes, warm and dry + incision (R neck C/D/I. L femoral vein puncture C/D/I) Neurologic moves all extremities and awake; no focal motor deficits and not confused Psychiatric A+Ox3, euthymic affect Discharge Data Allergies Allergy/AdvReac Type Severity Reaction Status Date / Time bee venom protein (honey bee) Allergy Severe swelling Verified 07/28/22 15:42 of lips/tongue/throat adhesive Allergy Intermediate rash Verified 07/28/22 15:42 latex Allergy Intermediate RED/IRRITAT Verified 07/28/22 15:42 ION Sulfa (Sulfonamide Allergy Intermediate HIVES Verified 07/28/22 15:42 Antibiotics) Hpjdasw-IRH-RbX Reductase AdvReac Intermediate MUSCLE Verified 07/28/22 15:42 Inhibitor ACHES [Thaeemk-Hvg-Mhp Reductase Inhibitor] Consultations 07/23/22 15:37 Consult Sort Supervisor Routine Procedures Performed Operation Date: 07/23/22 12:00 Actual Procedures p Right Transcarotid Artery Revascularization(Right) - Eddie Sheldon MD Ordered Studies 07/23/22 07:14 EV angio carotid external RT Routine 07/23/22 07:15 US EV guide vascular access Routine Hospital Course (1) Stenosis of right internal carotid artery: Pt is POD #1 after TCAR procedure. Doing well overall. Discussed with Dr Sheldon. Likely discharge home today if she takes PO well and ambulates. Total Time Total Time Spent Total Time Spent (In Minutes): 0 Discharge Plan Discharge Items Patient Disposition: Home - Self-Care Reason For Visit: Right Internal Carotid Artery Stenosis with TIA Discharge Diagnosis: 1. s/p Right transcarotid artery revascularization 2. Right carotid artery stenosis with CVA Activity: Per Instructions section Non-emergency contact: Primary Care Provider Call non-emergency contact if: you have any medication questions, your pain is not controlled, your pain is concerning for you, you have a fever, your wound has increased redness and your wound has increased drainage Follow-up/Referrals: Ramón Wallace MD [Primary Care Provider] - (Follow up with your PCP within 2 weeks) Eddie Sheldon MD [Physician] - (Follow up with Dr Sheldon or Lucy Bustillo PA-C within 2 weeks. ) Diet: Heart Healthy Addtl Attending Provider Instructions: 1. May shower, no soaking of wound underwater. 2. No lifting more than 10 lbs with R arm for [address] Sheldon's office at [phone] if any questions. ACTIVITY RECOMMENDATIONS: See Above SPECIAL CARE INSTRUCTIONS: Call your doctor if: * Temperature above 101 degrees * Pain not relieved by pain medicine ordered * There is increased drainage or redness from any incision * You have any unanswered questions or concerns. Pending Studies at Discharge: No Stand-Alone Forms: [facility] [employer], Smoking Cessation Medications and DC Order Prescriptions: Continued levothyroxine [Levoxyl] 100 mcg tablet 100 mcg PO QAM Qty: 90 3RF amlodipine 5 mg tablet 5 mg PO QAM Qty: 90 3RF cholecalciferol (vitamin D3) 1,000 unit capsule 1,000 units PO QAM docusate sodium [Dulcolax Stool Softener (dss)] 100 mg capsule 100 mg PO DAILY PRN (Reason: Constipation) Travatan Z 0.004 % drops 1 drops OP QPM aspirin 81 mg tablet,chewable 81 mg PO QAM fluticasone propionate [Flonase Allergy Relief] 50 mcg/actuation spray,suspension 1 spray intranasal BID PRN (Reason: Allergy Symptoms) ezetimibe [Zetia] 10 mg tablet 10 mg PO QAM calcium carbonate-vitamin D3 600 mg-5 mcg (200 unit) Tablet 1 tab PO QAM omega 2-xyg-qzd-fish oil [Fish Oil] 1,000 mg (120 mg-180 mg) Capsule 1 cap PO QAM atorvastatin 40 mg Tablet 40 mg PO QAM 30 Days Qty: 30 0RF clopidogrel 75 mg Tablet 75 mg PO QAM 30 Days Qty: 30 0RF Discharge Orders: Discharge Order (Routine); Ordered 07/24/22 Ordered By: Lucy Bustillo Admission Data Admit Date/Time: 07/23/22 12:47 Attending Provider: Eddie Sheldon Admit Provider: Eddie Sheldon Primary Care Provider: Ramón Wallace Other Providers: Albaro Mayo ; Asim Galvez ; Burke Couch ; José Miguel Mullen ; Amadou Pan ; Pablo Delgado ; Asher Culver ; Miguel Blevins ; Ambreen Granger Other Interventions: Discharge Summary Assessment (RN) Last Done: 07/24/22 14:18
== END 2022-07-24 17:48 | disposition home or self-care (01) | DRG 38 ==
LOC: ASU 09:54 → 1E 12:47
PROC: EV.TCAR (2022-07-23 12:00)